=== PATIENT | male | born 1975 | race Caucasian/White ===

== ENCOUNTER 2020-04-17 11:36 | Inpatient (IN) | payer OTHER ==
--- NOTE | 2020-04-17 12:07 | BHS.RME ---
Substance Use & Tx History - Substance Use History Alcohol Substance amount: 6 cans 40 oz, + 1 pint Ashlie Frequency of use: Daily Substance route: Oral Date of Last Use: 04/16/20 Nicotine Substance amount: 1 pack Frequency of use: Daily Substance route: Smoking Date of Last Use: 04/17/20 Physical/Psych/Mental Status - Behavior General Behavior: Increased activity (restlessness, agitation) Eye Contact: Normal - Cooperativeness Cooperativeness: Cooperative - Thinking Thought Processes: Tight, Logical, Goal Directed Thought content: Future oriented - Physical Health Problems Is patient presently having any pain?: No Does patient presently have any injuries (include location): No Does patient currently have a fever: No Is patient : No CIWA Nausea/Vomitin Muscle Tremors: 4-Moderate,w/Arms Extend Anxiety: 3 Agitation: 3 Paroxysmal Sweats: 3 Orientation: 0-Oriented Tacttile Disturbances: 0-None Auditory Disturbances: 0-None Visual Disturbances: 0-None Headache: 2-Mild CIWA-Ar Total Score: 18
[2020-04-17 12:53] VITALS: BMI 31.6
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
[2020-04-17] MEDS ORDERED: chlordiazePOXIDE HCL 25 MG CAPSULE PO PRN (13:32)
[2020-04-17] MEDS ORDERED: MENTHOL/PHENOL 1 EACH UD MM PRN (13:32)
[2020-04-17] MEDS ORDERED: MAGNESIUM CITRATE 300 ML BOTTLE PO PRN (13:32)
[2020-04-17] MEDS ORDERED: ACETAMINOPHEN 325 MG TABLET (FP) PO PRN ×2 (13:32)
[2020-04-17] MEDS ORDERED: MAG HYDROX/AL HYDROX/SIMETH 30 ML UNIT-DOSE CUP PO PRN (13:32)
[2020-04-17] MEDS ORDERED: BISMUTH SUBSALICYLATE 262 MG/15 ML BTL PO PRN (13:32)
[2020-04-17] MEDS ORDERED: MAGNESIUM HYDROX 2400MG/30ML ORAL SUSPENSION 30 ML CUP PO PRN (13:32)
[2020-04-17] MEDS ORDERED: ONDANSETRON *ODT* 4 MG TABLET SL PRN (13:32)
[2020-04-17] MEDS ORDERED: METHOCARBAMOL 500 MG TABLET PO PRN (13:32)
[2020-04-17] MEDS ORDERED: NICOTINE POLACRILEX 2 MG GUM BUC PRN (13:32)
[2020-04-17] MEDS ORDERED: IBUPROFEN 400 MG TABLET (FP) PO PRN (13:32)
[2020-04-17] MEDS: hydrOXYzine PAMOATE 25 MG CAPSULE (FP) PO SCH ×3 (15:18→23:07)
--- NOTE | 2020-04-17 16:31 | EKG ---
Test Reason : Blood Pressure : / mmHG Vent. Rate : 080 BPM Atrial Rate : 080 BPM P-R Int : 146 ms QRS Dur : 086 ms QT Int : 366 ms P-R-T Axes : 028 051 -23 degrees QTc Int : 422 ms NORMAL SINUS RHYTHM T WAVE ABNORMALITY, CONSIDER LATERAL ISCHEMIA ABNORMAL ECG WHEN COMPARED WITH ECG OF 16-NOV-2017 09:30, NO SIGNIFICANT CHANGE WAS FOUND Confirmed by MALORIE ELLINGTON MD ([id number]) on 04/17/2020 4:31:21 PM Referred By: Confirmed By:MALORIE ELLINGTON MD
[2020-04-17 17:12] LABS: HEMATOCRIT 42.5 % (35.4-49); HEMOGLOBIN 14.4 GM/dL (11.7-16.9); MCH 29.8 pg (25.7-33.7); MCHC 33.8 g/dl (32.0-35.9); MEAN CELL VOLUME 88.1 fl (80-96); MEAN PLT VOLUME 9.8 fl (7.5-11.1); PLATELET COUNT 304 K/MM3 (134-434); RBC 4.82 M/mm3 (4.00-5.60); RDW 14.1 % (11.9-15.9); WHITE BLOOD COUNT 9.6 K/mm3 (4.0-10.0)
[2020-04-17 17:25] LABS: ALBUMIN 3.5 g/dl (3.4-5.0); BILIRUBIN,TOTAL 0.8 mg/dL (0.2-1); BLOOD UREA NITROGEN 17.1 mg/dL (7-18); CALCIUM 9.1 mg/dL (8.5-10.1); POTASSIUM 4.5 mmol/L (3.5-5.1); TOT PROT 7.2 g/dl (6.4-8.2)
[2020-04-17] MEDS: chlordiazePOXIDE HCL 25 MG CAPSULE PO SCH ×2 (17:52→23:07)
[2020-04-17] MEDS: MELATONIN 5 MG TABLETS PO SCH (23:07)
[2020-04-17] MEDS: THIAMINE HCL 100 MG TABLET (FP) PO SCH (23:07)
[2020-04-18] MEDS: hydrOXYzine PAMOATE 25 MG CAPSULE (FP) PO SCH ×5 (07:08→22:10)
[2020-04-18] MEDS: chlordiazePOXIDE HCL 25 MG CAPSULE PO SCH ×4 (07:08→22:10)
--- NOTE | 2020-04-18 09:40 | PN ---
[facility] CIWA - CIWA Score Nausea/Vomitin-Mild Nausea/No Vomiting Muscle Tremors: 3 Anxiety: 2 Agitation: 2 Paroxysmal Sweats: No Perspiration Orientation: 0-Oriented Tacttile Disturbances: 1-Very Mild Itch/Numbness Auditory Disturbances: 0-None Visual Disturbances: 0-None Headache: 1-Very Mild CIWA-Ar Total Score: 10 S Progress Note (SOAP) Subjective: alert,irritable,anxious,interrupted sleep,aching pain in the body,interrupted sleep Objective: 04/18/20 14:09 Vital Signs Temperature 98.0 F 04/18/20 12:47 Pulse Rate 75 04/18/20 12:47 Respiratory Rate 20 04/18/20 12:47 Blood Pressure 99/61 04/18/20 12:47 O2 Sat by Pulse Oximetry (%) 96 04/18/20 12:47 Laboratory Last Values WBC 9.6 K/mm3 (4.0-10.0) 04/17/20 13:45 RBC 4.82 M/mm3 (4.00-5.60) 04/17/20 13:45 Hgb 14.4 GM/dL (11.7-16.9) 04/17/20 13:45 Hct 42.5 % (35.4-49) 04/17/20 13:45 MCV 88.1 fl (80-96) 04/17/20 13:45 MCH 29.8 pg (25.7-33.7) 04/17/20 13:45 MCHC 33.8 g/dl (32.0-35.9) 04/17/20 13:45 RDW 14.1 % (11.9-15.9) 04/17/20 13:45 Plt Count 304 K/MM3 (134-434) D 04/17/20 13:45 MPV 9.8 fl (7.5-11.1) 04/17/20 13:45 Sodium 140 mmol/L (136-145) 04/17/20 13:45 Potassium 4.5 mmol/L (3.5-5.1) 04/17/20 13:45 Chloride 105 mmol/L (98-107) 04/17/20 13:45 Carbon Dioxide 28 mmol/L (21-32) 04/17/20 13:45 Anion Gap 6 MMOL/L (8-16) L 04/17/20 13:45 BUN 17.1 mg/dL (7-18) 04/17/20 13:45 Creatinine 1.0 mg/dL (0.55-1.3) 04/17/20 13:45 Est GFR (CKD-EPI)AfAm 104.88 04/17/20 13:45 Est GFR (CKD-EPI)NonAf 90.49 04/17/20 13:45 Random Glucose 107 mg/dL (74-106) H 04/17/20 13:45 Calcium 9.1 mg/dL (8.5-10.1) 04/17/20 13:45 Total Bilirubin 0.8 mg/dL (0.2-1) 04/17/20 13:45 AST 21 U/L (15-37) 04/17/20 13:45 ALT 57 U/L (13-61) 04/17/20 13:45 Alkaline Phosphatase 104 U/L (45-117) 04/17/20 13:45 Total Protein 7.2 g/dl (6.4-8.2) 04/17/20 13:45 Albumin 3.5 g/dl (3.4-5.0) 04/17/20 13:45 Syphilis Serology Non-reactive (NONREACTIVE) 04/17/20 13:45 COVID-19 (JAMIE) Not detected (Not Detected) 04/17/20 13:40 HIV Ag/Ab Combo Qual Negative (NEGATIVE) 04/17/20 13:45 Assessment: 04/18/20 14:11 withdrawal symptom Plan: continue detox libium regimen
[2020-04-18] MEDS: PRENATAL VITAMINS W/ FOLIC ACID TABLET (FP) PO SCH (10:25)
[2020-04-18] MEDS: NICOTINE 7 MG/24 HOURS TOPICAL PATCH TD SCH (10:26)
[2020-04-18] MEDS ORDERED: PNEUMOC 13-VAL CONJ-DIP CRM/PF 0.5 ML DISP.SYRIN IM ONE (12:00)
[2020-04-18] MEDS ORDERED: PNEUMOCOCCAL 23 VACCINE 0.5 ML VIAL IM ONE (12:00)
[2020-04-18] MEDS: THIAMINE HCL 100 MG TABLET (FP) PO SCH (22:10)
[2020-04-18] MEDS: MELATONIN 5 MG TABLETS PO SCH (22:10)
[2020-04-19] MEDS: hydrOXYzine PAMOATE 25 MG CAPSULE (FP) PO SCH ×5 (05:35→22:32)
[2020-04-19] MEDS: chlordiazePOXIDE HCL 25 MG CAPSULE PO SCH ×4 (05:35→22:32)
--- NOTE | 2020-04-19 09:21 | PN ---
S CIWA - CIWA Score Nausea/Vomitin-No Nausea/No Vomiting Muscle Tremors: 2 Anxiety: 2 Agitation: 0-Normal Activity Paroxysmal Sweats: 2 Orientation: 0-Oriented Tacttile Disturbances: 0-None Auditory Disturbances: 0-None Visual Disturbances: 0-None Headache: 2-Mild CIWA-Ar Total Score: 8 BHS Progress Note (SOAP) Subjective: c/o sweats, anxiety, shakes, and headache. Objective: 04/19/20 09:41 Vital Signs 04/19/20 04/19/20 06:18 09:08 Temperature 96.9 F L 98.2 F Pulse Rate 65 78 Respiratory 18 18 Rate Blood Pressure 100/60 113/62 O2 Sat by Pulse 96 Oximetry (%) Laboratory Last Values WBC 9.6 K/mm3 (4.0-10.0) 04/17/20 13:45 RBC 4.82 M/mm3 (4.00-5.60) 04/17/20 13:45 Hgb 14.4 GM/dL (11.7-16.9) 04/17/20 13:45 Hct 42.5 % (35.4-49) 04/17/20 13:45 MCV 88.1 fl (80-96) 04/17/20 13:45 MCH 29.8 pg (25.7-33.7) 04/17/20 13:45 MCHC 33.8 g/dl (32.0-35.9) 04/17/20 13:45 RDW 14.1 % (11.9-15.9) 04/17/20 13:45 Plt Count 304 K/MM3 (134-434) D 04/17/20 13:45 MPV 9.8 fl (7.5-11.1) 04/17/20 13:45 Sodium 140 mmol/L (136-145) 04/17/20 13:45 Potassium 4.5 mmol/L (3.5-5.1) 04/17/20 13:45 Chloride 105 mmol/L (98-107) 04/17/20 13:45 Carbon Dioxide 28 mmol/L (21-32) 04/17/20 13:45 Anion Gap 6 MMOL/L (8-16) L 04/17/20 13:45 BUN 17.1 mg/dL (7-18) 04/17/20 13:45 Creatinine 1.0 mg/dL (0.55-1.3) 04/17/20 13:45 Est GFR (CKD-EPI)AfAm 104.88 04/17/20 13:45 Est GFR (CKD-EPI)NonAf 90.49 04/17/20 13:45 Random Glucose 107 mg/dL (74-106) H 04/17/20 13:45 Calcium 9.1 mg/dL (8.5-10.1) 04/17/20 13:45 Total Bilirubin 0.8 mg/dL (0.2-1) 04/17/20 13:45 AST 21 U/L (15-37) 04/17/20 13:45 ALT 57 U/L (13-61) 04/17/20 13:45 Alkaline Phosphatase 104 U/L (45-117) 04/17/20 13:45 Total Protein 7.2 g/dl (6.4-8.2) 04/17/20 13:45 Albumin 3.5 g/dl (3.4-5.0) 04/17/20 13:45 Syphilis Serology Non-reactive (NONREACTIVE) 04/17/20 13:45 COVID-19 (JAMIE) Not detected (Not Detected) 04/17/20 13:40 HIV Ag/Ab Combo Qual Negative (NEGATIVE) 04/17/20 13:45 Labs noted. Assessment: 04/19/20 09:20 AOX3, in no acute respiratory distress. Full ROM, ambulating in the unit. Withdrawal symptoms. Plan: continue detox.
[2020-04-19] MEDS: PRENATAL VITAMINS W/ FOLIC ACID TABLET (FP) PO SCH (10:24)
[2020-04-19] MEDS: NICOTINE 7 MG/24 HOURS TOPICAL PATCH TD SCH (10:25)
[2020-04-19] MEDS: MELATONIN 5 MG TABLETS PO SCH (22:32)
[2020-04-19] MEDS: THIAMINE HCL 100 MG TABLET (FP) PO SCH (22:32)
[2020-04-20] MEDS ORDERED: chlordiazePOXIDE HCL 10 MG CAPSULE PO PRN
[2020-04-20] MEDS ORDERED: chlordiazePOXIDE HCL 10 MG CAPSULE PO SCH (05:00)
[2020-04-20] MEDS: hydrOXYzine PAMOATE 25 MG CAPSULE (FP) PO SCH (05:41)
[2020-04-20 06:09] VITALS: BP 100/60; PULSE 70; TEMP 96.9
--- NOTE | 2020-04-20 08:31 | DS ---
[facility] Detox Discharge Summary Admission Date: 04/17/20 Discharge Date: 04/20/20 - History Present History: Alcohol Dependence Additional Comments: 44 years old male was admitted on 04/17/20 for alcohol withdrawal sx management treating with librium detox regiment mr cardenas prefers to go to [facility] today and go to [facility] tomorrow where he will stay 6 - 8 months alert oriented x 3 ambulating steady gait speech clearly coherently General Appearance: Yes: Within Normal Limits, No Apparent Distress, Nourished, Appropriately Dressed Respiratory: Yes: Within Normal Limits, Lungs Clear, Normal Breath Sounds, No Respiratory Distress, No Accessory Muscle Use, health teaching on smoking cessation Cardiology: Yes: Within Normal Limits, Regular Rhythm, Regular Rate. No: JVD, Murmur Abdominal: Yes: Within Normal Limits, Normal Bowel Sounds, Non Tender, Flat, Soft. No: Tenderness Back: Yes: Within Normal Limits, Normal Inspection. No: CVA Tenderness Extremities: Yes: Within Normal Limits, Normal Inspection, Normal Range of Motion, Non-Tender. No: Swelling Neurological: Yes: Within Normal Limits, Fully Oriented, Alert, Normal Mood/Affect, Normal Response. No: Numbness Pertinent Past History: time for discharge 48 minutes treatment team met with mr cardenas to discuss the benefits of librium completion mr cardenas insists to go home today "[facility] helps me in the past" they know I am coming - Physical Exam Results Vital Signs: Vital Signs Temperature 96.9 F L 04/20/20 06:08 Pulse Rate 70 04/20/20 06:08 Respiratory Rate 18 04/20/20 06:08 Blood Pressure 100/60 04/20/20 06:08 O2 Sat by Pulse Oximetry (%) 98 04/20/20 06:08 Pertinent Admission Physical Exam Findings: alcohol withdrawal Vital Signs - 24 hr 04/19/20 04/19/20 04/19/20 12:58 16:33 21:13 Temperature 97.7 F 97.7 F 97.3 F L Pulse Rate 74 69 74 Respiratory 18 18 16 Rate Blood Pressure 104/68 127/68 109/77 O2 Sat by Pulse 95 95 Oximetry (%) 04/20/20 06:08 Temperature 96.9 F L Pulse Rate 70 Respiratory 18 Rate Blood Pressure 100/60 O2 Sat by Pulse 98 Oximetry (%) Laboratory Tests 09/04/17/20 04/17/20 13:40 13:45 13:45 WBC 9.6 RBC 4.82 Hgb 14.4 Hct 42.5 MCV 88.1 MCH 29.8 MCHC 33.8 RDW 14.1 Plt Count 304 D MPV 9.8 Sodium Potassium Chloride Carbon Dioxide Anion Gap BUN Creatinine Est GFR (CKD-EPI)AfAm Est GFR (CKD-EPI)NonAf Random Glucose Calcium Total Bilirubin AST ALT Alkaline Phosphatase Total Protein Albumin Syphilis Serology COVID-19 (JAMIE) Not detected HIV Ag/Ab Combo Qual Negative 04/17/20 04/17/20 13:45 13:45 WBC RBC Hgb Hct MCV MCH MCHC RDW Plt Count MPV Sodium 140 Potassium 4.5 Chloride 105 Carbon Dioxide 28 Anion Gap 6 L BUN 17.1 Creatinine 1.0 Est GFR (CKD-EPI)AfAm 104.88 Est GFR (CKD-EPI)NonAf 90.49 Random Glucose 107 H Calcium 9.1 Total Bilirubin 0.8 AST 21 ALT 57 Alkaline Phosphatase 104 Total Protein 7.2 Albumin 3.5 Syphilis Serology Non-reactive COVID-19 (JAMIE) HIV Ag/Ab Combo Qual lab noted - Treatment Hospital Course: Detox Protocol Followed, Detoxed Safely, Responded well, Discharged Condition Good, Rehab Referral Accepted Patient has Accepted a Rehab Referral to: [facility] - Medication Discharge Medications: Ambulatory Orders NK [No Known Home Medication] 04/17/20 - Diagnosis (1) Substance induced mood disorder Current Visit: Yes Status: Suspected (2) Alcohol dependence with uncomplicated withdrawal Current Visit: Yes Status: Acute (3) Nicotine dependence Current Visit: Yes Status: Acute Qualifiers: Nicotine product type: cigarettes Substance use status: in withdrawal Qualified Code(s): F17.213 - Nicotine dependence, cigarettes, with withdrawal - AMA Did Patient Leave Against Medical Advice: No CIWA Score - CIWA Score Nausea/Vomitin-No Nausea/No Vomiting Muscle Tremors: 2 Anxiety: 2 Agitation: 0-Normal Activity Paroxysmal Sweats: No Perspiration Orientation: 0-Oriented Tacttile Disturbances: 0-None Auditory Disturbances: 0-None Visual Disturbances: 0-None Headache: 0-None Present CIWA-Ar Total Score: 4
[2020-04-21] MEDS ORDERED: chlordiazePOXIDE HCL 10 MG CAPSULE PO SCH (05:00)
--- NOTE | 2020-04-21 08:24 | PN ---
Teaching Attending Note Name of Resident: Hasmukh Gray ATTENDING PHYSICIAN STATEMENT I saw and evaluated the patient. I reviewed the resident's note and discussed the case with the resident. I agree with the resident's findings and plan as documented. SUBJECTIVE: OBJECTIVE: ASSESSMENT AND PLAN: Agree with resident's findings and plan for detox.
[2020-04-22] MEDS ORDERED: chlordiazePOXIDE HCL 10 MG CAPSULE PO ONE (05:00)
== END 2020-04-20 09:28 | disposition home or self-care (01) | DRG 775 ==
LOC: YASAS 11:36 → Y3N 13:27
PROVIDERS: ADMIT Allergy & Immunology; ATTEND Allergy & Immunology
PROC: HZ2ZZZZ Detoxification Services for Substance Abuse Treatment (ICD-10-PCS; principal; 2020-04-17)
DX: F10.230 Alcohol dependence with withdrawal, uncomplicated (principal); F17.210 Nicotine dependence, cigarettes, uncomplicated; F19.24 Other psychoactive substance dependence with psychoactive substance-induced mood disorder; Z59.0 Homelessness
CPT/HCPCS: 36415; 80053; 85027; 86780; 87389; 90732; 93005; 93010; G0009; U0003

== ENCOUNTER 2020-05-02 21:07 | Inpatient (IN) | payer OTHER ==
--- OUTSIDE RECORDS SUMMARY | 2020-05-02 21:16 | XMS ---
:1975 [facility] Providers Name Role Phone DEBI ANTONAMADORCHECO Unavailable Jimi Chisholm MD Unavailable Unavailable Akash See MD Unavailable Unavailable ED STAFF PHYSICIAN Unavailable Unavailable SD Mayers Unavailable Unavailable Keanu Unavailable Unavailable Re-disclosure Warning The records that you are about to access may contain information from federally- assisted alcohol or drug abuse programs. If such information is present, then the following federally mandated warning applies: This information has been disclosed to you from records protected by federal confidentiality rules (42 CFR part 2). The federal rules prohibit you from making any further disclosure of this information unless further disclosure is expressly permitted by the written consent of the person to whom it pertains or as otherwise permitted by 42 CFR part 2. A general authorization for the release of medical or other information is NOT sufficient for this purpose. The Federal rules restrict any use of the information to criminally investigate or prosecute any alcohol or drug abuse patient.The records that you are about to access may contain highly sensitive health information, the redisclosure of which is protected by Article 27-F of the [facility] Public Health law. If you continue you may haveaccess to information: Regarding HIV / AIDS; Provided by facilities licensed or operated by the [facility] Office of Mental Health; or Provided by the [facility] Office for People With Developmental Disabilities. If such information is present, then the following [facility] mandated warning applies: This information has been disclosed to you from confidential records which are protected by state law. State law prohibits you from making any further disclosure of this information without the specific written consent of the person to whom it pertains, or as otherwise permitted by law. Any unauthorized further disclosure in violation of state law may result in a fine or shelter sentence or both. A general authorization for the release of medical or other information is NOT sufficient authorization for further disclosure. Encounters Encounter Providers Location Date Indications Data Source(s ) Inpatient Attender: Jimi 5T-2N 10/19/2019 [facility] Neda See 06:09:00 [facility] MDAttender: EDT - Jose Alejandro 10/26/2019 EllisonAdmitter: 05:00:00 PM Jimi See EDT SCHIZOAFFECTIVE DISORDER Patient discharged. Inpatient Attender: TAMMY WONG H-HAL2 09/14/2019 12:39: 00 [facility] TAMMY RAttender: STAFF AM EST - [address] [place] [address] ED STAFF PHYSICIANAdmitter: 01:27:00 PM EDT TAMMY MUNOZ RReferrer: TAMMY MUNOZ R Patient discharged. Inpatient Attender: CHECO CARRERA H-HAL6 03/20/2018 07:42 :00 [facility] EDSEANERAdmitter: AM EDT - 03/21/2018 [facility] CHECO CARRERA 01:35:00 PM EDT TATIOPHERReferrer: CHECO KESSLER Medications Medication Brand Start Product Dose Route Administrative Pharmacy [facility] Indications Reaction Description Data Name Date Form Instructions Instructions Source(s) 24 HR nicoti [id number] active Nicoderm C- Q [facility] Nic[facility] ne 2019 [facility] 0.583 MG/HR mg/24 03:43: H} Syste m Transdermal hr 28 PM Patch transd EDT nicotine 14 ermal mg/24 hr film, transdermal extend film, ed extended releas release e aripiprazol ARIPip [id number] active Aripi prazole [facility] e 5 MG Oral razole 2019 {tab( Healt h Tablet 5 mg 03:43: s)} System ARIPiprazol oral 03 PM e 5 mg oral tablet EDT tablet Sertraline sertra [id number] active Sertra line [facility] 50 MG Oral line 2019 {tab( Health Tablet 50 mg 03:42: s)} System sertraline oral 53 PM 50 mg oral tablet EDT tablet Lashmeet lithiu R47221 complet Lashmeet [facility] Carbonate m 300 2017 {cap( ed Carbonate Hea lth 300 MG Oral mg 02:04: s)} System Capsule oral 14 PM lithium 300 capsul EDT mg oral e capsule aripiprazole ARIPiprazole 12/02/2017 1 [id number] active ARIPiprazole 5 mg oral tablet; 1 tab(s) orally once a day Ordered: 02-Dec-2017 Start: 02-Dec-2017 E nd: 31-Dec-2017 [facility] 5 MG Oral 5 mg oral 02:03:57 PM {tab(s)} Quantity: 30 [facility] Tablet tablet EDT Refills: 0 System ARIPiprazole 5 mg oral tablet Sertraline 100 MG sertraline 100 mg 1 completed [facility] Oral Tablet Tablet, Ordered By: [facility] sertraline 100 mg Abbey-Nafisa Wong, Tablet, Ordered By: MDDirections: 1 Abbey-Nafisa Wong, tablet oral daily on MDDirections: 1 waking tablet oral daily on waking Melatonin 3 MG Oral melatonin 3 mg 2 completed [facility] Tablet melatonin 3 mg Tablet, Ordered By: [facility] Tablet, Ordered By: Abbey-Nafisa Wong, Abbey-Nafisa Wong, MDDirections: 2 MDDirections: 2 tablet oral daily at tablet oral daily at bedtime bedtime aripiprazole 15 MG aripiprazole 15 mg 1 complet ed [facility] Oral Tablet Tablet, Ordered By: [facility] aripiprazole 15 mg Abbey-Nafisa Wong, Tablet, Ordered By: MDDirections: 1 Abbey-Nafisa Wong, tablet oral daily at MDDirections: 1 bedtime tablet oral daily at bedtime Insurance Providers Payer name Policy type Policy ID Covered Covered constitution party's Policy P escobar / Coverage constitution party ID relationship to [facility] ormation type rivera [facility] [id number] HEALTH NON CAP Medicaid E Medicaid [id number] 1 [id number] W [facility] Medicaid [id number] Medicaid Self Pay Self Pay 1 Medicaid Medicaid [id number] W [id number] Problems, Conditions, and Diagnoses Code Display Name Description Problem Type Effective Data Dates Source(s) F25.9 Schizoaffective Schizoaffective 28889-0 10/19/2019 [facility] disorder disorder 12:00:00 AM Health System EDT F25.9 Schizoaffective Schizoaffective Diagnosis 10/19/2019 [facility], [facility] SCHIZOAFFECTIVE SCHIZOAFFECTIVE Diagnosis 10/19/2019 [facility] DISORDER DISORDER 07:54:00 PM [facility] Z91.5 Personal history of History of Diagnosis 10/19/2019 [facility] self-harm self-harm 07:54:00 PM [facility] F17.210 Nicotine Cigarette nicotine Diagnosis 10/19/2019 [facility] dependence, dependence without 07:54:00 PM Eric on cigarettes, complication EDT Hospital uncomplicated D72.829 Elevated white Leukocytosis Diagnosis 10/19/2019 S - Mo unt blood cell count, 07:54:[facility] Y90.0 Blood alcohol level BLOOD ALCOHOL LEVEL Diagnosis 020 [facility] of less than 20 OF LESS THAN 20 01:27:00 PM Med ical mg/100 ml MG/100 ML EDT Center F10.229 Alcohol dependence ALCOHOL DEPENDENCE Diagnosis 0 [facility] with intoxication, WITH INTOXICATION, 01:27:00 PM Medical unspecified UNSPECIFIED EDT Center F14.20 Cocaine dependence, COCAINE DEPENDENCE, Diagnosis 020 [facility] uncomplicated UNCOMPLICATED 01:27:00 PM Medical EDT Center Z59.0 Homelessness HOMELESSNESS Diagnosis 10/12/2019 [facility] 01:27:00 PM Medical EDT Center Z56.0 Unemployment, UNEMPLOYMENT, Diagnosis 10/12/2019 [facility] unspecified UNSPECIFIED 01:27:00 PM Medical EDT Center F32.9 Major depressive MAJOR DEPRESSIVE Diagnosis 09/14/2019 [facility] disorder, single DISORDER, SINGLE 12:39:00 AM M edical episode, EPISODE, EST Center unspecified UNSPECIFIED Surgeries/Procedures Procedure Description Date Indications Data Source(s) XR Chest Single AP view XR 11/26/2017 [facility] Chest Single AP view 12:11:00 AM System EDT - 11/26/2017 12:11:00 AM EDT Computed tomography of 11/26/2017 [facility] abdomen (procedure) 12:11:00 AM System EDT - 11/26/2017 12:11:00 AM EDT Electrocardiographic 11/25/2017 [facility] procedure (procedure) 10:50:03 PM System EDT - 11/25/2017 10:54:00 PM EDT Results ID Date Data Source [id number] 04/22/2020 11:57:00 AM EDT [facility] Name Value Range Interpretation Code Description Data Nae rce(s) Supporting Document(s ) SARS-CoV-2 [facility] RNA Resp Ql JAMIE+probe This lab was ordered by [facility] a nd reported by [facility]. ID Date Data Source [id number] 04/17/2020 01:40:00 PM EDT [facility] Name Value Range Interpretation Description Data Sup porting Code Source(s) Document(s ) SARS [facility] coronavirus 2 RNA This lab was ordered by [facility] and reported by [facility]. ID Date Data Source [id number] 04/14/2020 07:57:00 AM EDT [facility] System Name Value Range Interpretation Code Description Data Nae rce(s) Supporting Document(s ) SARS-CoV-2 [facility] RNA Resp Health System Ql JAMIE+probe This lab was ordered by [facility] a nd reported by [facility]. ID Date Data Source [id number] 04/06/2020 11:11:00 PM EDT [facility] Name Value Range Interpretation Code Description Data Nae rce(s) Supporting Document(s ) SARS-CoV-2 [facility] RNA Resp Ql JAMIE+probe This lab was ordered by [facility] a nd reported by [facility]. ID Date Data Source [id number] 10/26/2019 06:36:00 PM EDT [facility] System Name Value Range Interpretation Description Data Sup porting Code Source(s) Document(s ) Leukocytes 19.4 Above high WBC Count [facility] [#/volume] in {10^3_uL normal Health Unspecified } System specimen by Automated count Erythrocytes 5.50 Normal (applies RBC Count [facility] [#/volume] in {10^6_uL to non-numeric Health Blood by } results) System Automated count Hemoglobin 15.6 Normal (applies Hemoglobin [facility] [Mass/volume] in {gm/dL} to non-numeric Health Blood results) System Erythrocyte mean 84.2 fl Normal (applies MCV [facility] corpuscular to non-numeric Health volume [Entitic results) System volume] by Automated count Hematocrit 46.3 % Normal (applies Hematocrit [facility] [Volume to non-numeric Health Fraction] of results) System Blood Erythrocyte mean 28.4 pg Normal (applies MCH [facility] corpuscular to non-numeric Health hemoglobin results) System [Entitic mass] by Automated count Erythrocyte 12.7 % Normal (applies RDW-CV [facility] distribution to non-numeric Health width [Entitic results) System volume] by Automated count Platelets 334 Normal (applies Platelet Count [facility] [#/volume] in {10^3_uL to non-numeric Health Plasma by } results) System Automated count Platelet mean 10.6 fl Above high MPV [facility] volume [Entitic normal Health volume] in Blood System by Automated count Erythrocyte mean 33.7 Normal (applies MCHC [facility] corpuscular {gm/dL} to non-numeric Health hemoglobin results) System concentration [Mass/volume] by Automated count Eosinophils 0.10 Normal (applies Eosinophil # [facility] [#/volume] in {10^3_uL to non-numeric Health Blood } results) System Neutrophils 16.3 Above high Neutrophil # [facility] [#/volume] in {10^3_uL normal Health Body fluid } System Lymphocyte 1.4 Normal (applies Lymphocyte # [facility] percent {10^3_uL to non-numeric Health differential } results) System count (procedure) Monocytes 1.4 Above high Monocyte # [facility] [#/volume] in {10^3_uL normal Health Blood by Manual } System count Basophils 0.09 Normal (applies Basophil # [facility] [#/volume] in {10^3_uL to non-numeric Health Blood by } results) System Automated count Basophils/100 0.5 % Normal (applies Basophil % [facility] leukocytes in to non-numeric Health Unspecified results) System specimen by Manual count Lymphocytes 7.2 % Below low normal Lymphocyte % [facility] [#/volume] in Health Blood by System Automated count Monocytes/100 7.0 % Normal (applies Monocyte % [facility] leukocytes in to non-numeric Health Blood results) System Neutrophils/100 84.3 % Above high Neutrophil % [facility] leukocytes in normal Health Blood by System Automated count Eosinophils/100 0.5 % Normal (applies Eosinophil % Marco Antonio najma leukocytes in to non-numeric Health Unspecified results) System specimen Nucleated 0.0 Normal (applies NRBC % [facility] erythrocytes {/100_WB to non-numeric Health [#/volume] in C} results) System Body fluid ImmatureGranuloc 0.5 % Normal (applies Immature [facility] ytes% to non-numeric Granulocytes % Health results) System NRBC# 0.00 Below low normal NRBC # [facility] {10^3_uL Health } System ImmatureGranuloc 0.09 Normal (applies Immature [facility] ytes# {10^3_uL to non-numeric Granulocytes # Health } results) System ID Date Data Source [id number] 10/26/2019 06:36:00 PM EDT [facility] Name Value Range Interpretation Description Data Sup porting Code Source(s) Document(s ) Sodium 138 Normal (applies Sodium, Serum [facility] [Moles/volume] in mmol/L to non-numeric Health Serum or Plasma results) System Potassium 4.2 Normal (applies Potassium, [facility] [Mass/volume] in mmol/L to non-numeric Serum Health Serum or Plasma results) System Glucose 103 Normal (applies Glucose, [facility] [Mass/volume] in mg/dL to non-numeric Serum Health Serum or Plasma results) System Carbon dioxide, 26.0 Normal (applies CO2, Serum [facility] total mmol/L to non-numeric Health [Moles/volume] in results) System Serum or Plasma Chloride 99 Normal (applies Chloride, [facility] [Moles/volume] in mmol/L to non-numeric Serum Health Serum or Plasma results) System TotalProtein 7.8 Normal (applies Total Protein [facility] mg/dl to non-numeric Health results) System Bilirubin.total 0.8 Normal (applies Bilirubin, [facility] [Mass/volume] in mg/dl to non-numeric Serum Total Health Serum or Plasma results) System Urea nitrogen 15 Normal (applies Blood Urea [facility] [Mass/volume] in mg/dl to non-numeric Nitrogen, Health Serum or Plasma results) Serum System Creatinine 1.00 Normal (applies Creatinine, [facility] [Mass/volume] in mg/dl to non-numeric Serum Health Serum or Plasma results) System Alkaline 105 Normal (applies Alkaline [facility] phosphatase {IU/L} to non-numeric Phosphatase, Health isoenzymes results) Serum System [Enzymatic activity/volume] in Serum or Plasma by Heat stability Aspartate 26 Normal (applies Aspartate [facility] aminotransferase {IU/L} to non-numeric Transaminase, Heal th [Enzymatic results) Serum System activity/volume] in Serum or Plasma by With P-5'-P DirectBilirubin 0.4 Normal (applies Direct [facility] mg/dl to non-numeric Bilirubin Health results) System I.Phosphorus 4.2 Normal (applies I. Phosphorus [facility] mg/dl to non-numeric Health results) System Albumin 4.7 Normal (applies Albumin, [facility] [Mass/volume] in {gm/dl} to non-numeric Serum Health Serum or Plasma results) System Urate 6.1 Normal (applies Uric Acid, [facility] [Mass/volume] in mg/dl to non-numeric Serum Health Serum or Plasma results) System Calcium 9.4 Normal (applies Calcium, [facility] [Mass/volume] in mg/dl to non-numeric Total Serum Health Serum or Plasma results) System Alanine 26 Normal (applies Alanine [facility] aminotransferase {IU/L} to non-numeric Aminotransfer Heal th [Enzymatic results) ase, Serum System activity/volume] in Serum or Plasma A/GRatio 1.52 Normal (applies A/G Ratio [facility] to non-numeric Health results) System Anion gap in Serum 13.00 Above high Anion Gap [facility] or Plasma mmol/L normal Health System Glomerular 81.00 Normal (applies GFR [facility] filtration to non-numeric Health rate/1.73 sq results) System M.predicted [Volume Rate/Area] in Serum or Plasma by Creatinine-based formula (CKD-EPI) eGFR will provide clinicians with a more accurate indicator of renal function then the serum creatinine. The eGFR is automa tically calculated from an empiric formula (endorsed by the National [employer] ion) which incorporates age, sex, and race.Clinicians may notice surprisingly low GFR's with serum creatinine valueswithin normal range- particularly in elderly wo men (with low muscle mass).In the hospital setting, the eGFR should add an element of safety in drug dosing, in assessing the risk of IV contrast administration, and in assessing vascular risk.The NKF staging system is as follows:Normal: eGFR >90 with no kidney markersStage 1: eGFR >90 with kidney markers*Stage 2: eGFR 60- 89Stage 3: eGFR 30-59Stage 4: eGFR 15-29Stage 5: eGFR <15 (usually requir ing dialysis)*Markers include: Proteinuria, Hematuria, abnormal imaging-studies, or other blood or urine test abnormalities ID Date Data Source [id number] 10/26/2019 06:36:00 PM EDT [facility] Name Value Range Interpretation Description Data Sup porting Code Source(s) Document(s ) AlcoholE NON DETECTED Normal (applies to Alcohol Ethyl, [facility] thyl,Blo None non-numeric Blood Health System od Detected results) ID Date Data Source [id number] 10/26/2019 06:36:00 PM EDT [facility] Name Value Range Interpretation Description Data Source(s ) Supporting Code Document(s ) Lipase 45 U/L Normal (applies to Lipase, Serum [facility] [Enzymatic non-numeric Health System activity/vo results) lume] in Serum or Plasma ID Date Data Source [id number] 10/26/2019 06:36:00 PM EDT [facility] Name Value Range Interpretation Description Data Source(s ) Supporting Code Document(s ) PCO2* 46.5 Normal (applies to PCO2* [facility] {mm_Hg} non-numeric Health System results) BaseExce 4.50 Above high normal Base Excess* [facility] ss* {mEq/L} Health System PH* 7.406 Normal (applies to PH* [facility] {pH_units non-numeric Health System } results) Chloride 100 Normal (applies to Chloride, VB [facility] ,VB mmol/L non-numeric Health System results) Glucose, 102 mg/dL Normal (applies to Glucose, VB [facility] VB non-numeric Health System results) HCO3* 29.2 Above high normal HCO3* [facility] mmol/L Health System Lactate. 1.2 Normal (applies to Lactate. [facility] mmol/L non-numeric Health System results) Potassiu 4.1 Normal (applies to Potassium, VB [facility] m,VB mmol/L non-numeric Health System results) Sodium,V 138 Normal (applies to Sodium, VB [facility] B mmol/L non-numeric Health System results) IonizedC 1.16 Normal (applies to Ionized [facility] alcium,V mmol/L non-numeric Calcium, Health System B results) [id number] 39.70 % Normal (applies to O2 Saturation* [facility] tion* non-numeric Health System results) ID Date Data Source [id number] 10/26/2019 06:36:00 PM EDT [facility] Name Value Range Interpretation Description Data Source(s ) Supporting Code Document(s ) Troponin 0.00 Normal (applies to Troponin I [facility] IQuantit ng/mL non-numeric Quantitative - Health System ative-MV results) MV Only Only ID Date Data Source [id number] 10/26/2019 06:36:00 PM EDT [facility] Name Value Range Interpretation Description Data Sup porting Code Source(s) Document(s ) Amphetamine Negative Normal (applies Amphetamine [facility] [Mass/volume] to non-numeric Level, Urine Health in Urine results) System Cut-off = 1000 ng/mL Barbiturates Negative Normal (applies to Barbiturate [facility] [Mass/volume] in non-numeric Screen, Urine Health System Urine by Screen results) method Cut-off = 200 ng/mL Cocaine Negative Normal (applies Cocaine [facility] metabolites.other to non-numeric Metabolite Health System [Mass/volume] in Urine results) Screen, Urine Cut-off = 300 ng/mL Benzodiazepines Positive Abnormal Benzodiazepines, [facility] [Mass/volume] in (applies to Urine Health Syst em Urine non-numeric results) Cut-off = 200 ng/mL [id number],Urine Negative Normal (applies to Opiate 300, [facility] non-numeric results) Urine System Cut-off = 300 ng/mL Methadone Negative Normal (applies to Methadone Level, [facility] [Mass/volume] in non-numeric Urine System Urine results) Cut-off = 300 ng/mL Cannabinoid(THC) Negative Normal (applies to Cannabinoid (THC) [facility] non-numeric System results) Cutt-off = 50These results are for medic al treatment only. The positive findings are unconfirmed. Request confirmatory/quanti tative test if needed. Phencyclidine Negative Normal (applies Phencyclidine, Urine [facility] [Mass/volume] in to non-numeric Health S ystem Urine results) Cut-off = 25 ng/mL ID Date Data Source [id number] 10/26/2019 06:36:00 PM EDT [facility] Name Value Range Interpretation Description Data Sup porting Code Source(s) Document(s ) Lashmeet < 0.101 Below low normal L[place]meet Level, [facility] [Mass/volum Serum Health System e] in Serum or Plasma Performed At [facility], [address] [place] [address] ID Date Data Source [id number] 10/26/2019 06:36:00 PM EDT [facility] Name Value Range Interpretation Description Data Sup porting Code Source(s) Document(s ) Leukocytes 8.6 Normal (applies WBC Count [facility] [#/volume] in {10^3_uL to non-numeric Health Unspecified } results) System specimen by Automated count Hemoglobin 15.1 Normal (applies Hemoglobin [facility] [Mass/volume] in {gm/dL} to non-numeric Health Blood results) System Erythrocytes 5.27 Normal (applies RBC Count [facility] [#/volume] in {10^6_uL to non-numeric Health Blood by } results) System Automated count Erythrocyte mean 85.4 fl Normal (applies MCV [facility] corpuscular to non-numeric Health volume [Entitic results) System volume] by Automated count Hematocrit 45.0 % Normal (applies Hematocrit [facility] [Volume to non-numeric Health Fraction] of results) System Blood Erythrocyte mean 28.7 pg Normal (applies MCH [facility] corpuscular to non-numeric Health hemoglobin results) System [Entitic mass] by Automated count Erythrocyte 12.5 % Normal (applies RDW-CV [facility] distribution to non-numeric Health width [Entitic results) System volume] by Automated count Erythrocyte mean 33.6 Normal (applies MCHC [facility] corpuscular {gm/dL} to non-numeric Health hemoglobin results) System concentration [Mass/volume] by Automated count Platelet mean 10.7 fl Above high normal MPV [facility] volume [Entitic Health volume] in Blood System by Automated count Platelets 286 Normal (applies Platelet [facility] [#/volume] in {10^3_uL to non-numeric Count Health Plasma by } results) System Automated count ID Date Data Source [id number] 10/26/2019 06:36:00 PM EDT [facility] alth System Name Value Range Interpretation Description Data Sup porting Code Source(s) Document(s ) Human NONREACTIVE Normal ([facility]lies [facility] Normal Range: to non-numeric Routine Health cy virus Non results) (antigen and System antibody titer ReactiveNegativ antibody measurement e for HIV-1 testing) (procedure) antigen and HIV-1/HIV-2 antibodies. No laboratory evidence of HIV infection.Test was performed at [address] ID Date Data Source [id number] 10/26/2019 06:36:00 PM EDT [facility] alth System Name Value Range Interpretation Description Data Sup porting Code Source(s) Document(s ) Sodium 138 Normal (applies Sodium, Serum [facility] [Moles/volume mmol/L to non-numeric Health Syst em ] in Serum or results) Plasma Potassium 4.5 Normal (applies Potassium, [facility] [Mass/volume] mmol/L to non-numeric Serum Health Syst em in Serum or results) Plasma Carbon 24.0 Normal (applies CO2, Serum [facility] dioxide, mmol/L to non-numeric Health System total results) [Moles/volume ] in Serum or Plasma Glucose 86 mg/dL Normal (applies Glucose, Serum [facility] [Mass/volume] to non-numeric Health Syst em in Serum or results) Plasma Chloride 104 Normal (applies Chloride, [facility] [Moles/volume mmol/L to non-numeric Serum Health Syst em ] in Serum or results) Plasma Creatinine 0.90 Normal (applies Creatinine, [facility] [Mass/volume] mg/dl to non-numeric Serum Health Syst em in Serum or results) Plasma Calcium 9.3 Normal (applies Calcium, Total [place] [facility] [Mass/volume] mg/dl to non-numeric Serum Health Syst em in Serum or results) Plasma Urea nitrogen 13 mg/dl Normal (applies Blood Urea [place] [facility] [Mass/volume] to non-numeric Nitrogen, Health Syst em in Serum or results) Serum Plasma Anion gap in 10.00 Normal (applies Anion Gap [facility] Serum or mmol/L to non-numeric Health System Plasma results) ID Date Data Source [id number] 10/26/2019 06:36:00 PM EDT [facility] Name Value Range Interpretation Description Data Sup porting Code Source(s) Document(s ) Triglyceride 146 Normal (applies Triglycerides, [facility] [Mass/volume] mg/dl to non-numeric Serum Health in Serum or results) System Plasma Optimal = < 100 mg/dLBoderline High = 15 0 - 199 mg/dLHigh = 200 - 499 mg/dLVery High = > 500 mg/dL Cholesterol 165 mg/dl Normal (applies Cholesterol, Serum [facility] [Mass/volume] in to non-numeric Health S ystem Serum or Plasma results) <200 mg/dL = [id number] - 239 md/dL = Borderline>240 mg/dL = High Risk Cholesterol in HDL 38.0 mg/dL Normal (applies HDL Cholestero l, [facility] [Mass/volume] in to non-numeric Serum Health S ystem Serum or Plasma results) Cholesterol in LDL 97.8 mg/dL Normal (applies Low Density [facility] [Mass/volume] in to non-numeric Lipoprotein, Healt h System Serum or Plasma results) Calculated OPTIMAL: LESS THAN 100 mg/dLNEAR OPTIMAL : 100 - 129 mg/dLBODERLINE HIGH: 130 - 150 mg/dL Cholesterol in VLDL 29.2 Normal (applies to VLDL, Serum [facility] [Mass/volume] in Serum non-numeric results) System or Plasma CHDRisk 4.34 Normal (applies to [facility] non-[facility] results) System ID Date Data Source [id number] 10/14/2019 01:09:00 PM EDT [facility] Name Value Range Interpretation Code Description Data Nae rce(s) Supporting Document(s ) SARS-CoV-2 [facility] RNA XXX Ql Health [facility] JAMIE+probe This lab was ordered by [facility] a nd reported by [facility]. ID Date Data Source HematologyRou.[id number] 09/16/2019 06:36:00 AM ROSELINE Ricardo [facility] 0500 Name Value Range Interpretation Description Data Sup porting Code Source(s) Document(s ) Hemoglobin 13.5-17. <content [facility] [Mass/volume] in 5 styleCode="Bold Tu Blood ">Hemoglobin Medical </content>14.3 Center G/DL<content styleCode="Ital ics"> (13.5-17.5 G/DL)</content> Erythrocytes 4.4-5.9 <content [facility] [#/volume] in styleCode="Bold Tu Blood by ">Red Blood Medical Automated count Cell Count Center </content>4.87 MCUMM<content styleCode="Ital ics"> (4.4-5.9 MCUMM)</content > Leukocytes 4.4-11.0 <content Saint [#/volume] in styleCode="Bold [facility] Blood by ">White Blood Medical Automated count Cell Count Center </content>7.52 KCUMM<content styleCode="Ital ics"> (4.4-11.0 KCUMM)</content > Hematocrit 41.0-53. <content Saint [Volume 0 styleCode="Bold [facility] Fraction] of ">Hematocrit Medical Blood by </content>43.1 Center Automated count %<content styleCode="Ital ics"> (41.0-53.0 %)</content> Platelets 130-400 <content Saint [#/volume] in styleCode="Bold Tu Blood by ">Platelet Medical Automated count Count Center </content>249 KCUMM<content styleCode="Ital ics"> (130-400 KCUMM)</content > Erythrocyte mean 26.0-34. <content Saint corpuscular 0 styleCode="Bold Tu hemoglobin ">Mean Medical [Entitic mass] Corposcular Center by Automated Hemoglobin count </content>29.4 PG<content styleCode="Ital ics"> (26.0-34.0 PG)</content> Erythrocyte mean 32.0-37. <content [facility] corpuscular 0 styleCode="Bold Tu hemoglobin ">Mean Corpus. Medical concentration Hgb Center [Mass/volume] by Concentration Automated count (MCHC) </content>33.2 G/DL<content styleCode="Ital ics"> (32.0-37.0 G/DL)</content> Erythrocyte mean 80.0-100 <content Saint corpuscular .0 styleCode="Bold Tu volume [Entitic ">Mean Medical volume] by Corpuscular Center Automated count Volume </content>88.5 FL<content styleCode="Ital ics"> (80.0-100.0 FL)</content> Erythrocyte 11.5-14. <content Saint distribution 5 styleCode="Bold Tu width [Ratio] by ">Red Cell Medical Automated count Distribution Center Width </content>12.3 %<content styleCode="Ital ics"> (11.5-14.5 %)</content> Platelet mean 8.0-11.0 Above high <content Saint volume [Entitic normal styleCode="Bold Tu volume] in Blood ">Mean Platelet Medical by Automated Volume Center count </content>11.6 FL H<content styleCode="Ital ics"> (8.0-11.0 FL)</content> UNK 0.0 <content Saint styleCode="Bold Tu ">Nucleated Red Medical Blood Cell Center Count </content>0.00 KCUMM<content styleCode="Ital ics"> (0.0 KCUMM)</content > UNK 0 <content Saint styleCode="Bold Tu ">Nucleated Red Medical Blood Cell Center </content>0.0 /100<content styleCode="Ital ics"> (0 /100)</content> ID Date Data Source [id number] 09/15/2019 12:35:00 AM EST [facility] Center Name Value Range Interpretation Description Data Sup porting Code Source(s) Document(s ) Triglyceride < 150 <content Saint [Mass/volume] in styleCode="Mohan Tu Serum or Plasma d">Triglycerid [facility] Center </content>122 MG/DL<content styleCode="Jacey lics"> (< 150 MG/DL)</conten t> UNK < 100 <content Saint styleCode="Mohan Tu d">LDL-Cholest Medical partha [place] </content>80 MG/DL<content styleCode="Jacey lics"> (< 100 MG/DL)</conten t> Cholesterol -<200 <content Saint [Mass/volume] in styleCode="Mohan Mae Serum or Plasma d">Cholesterol Medical </content>146 Center MG/DL<content styleCode="Jacey lics"> (-<200 MG/DL)</conten t> UNK > 60 Below low normal <content Saint styleCode="Mohan Tu d">HDL- Medical Cholesterol [place] </content>42 MG/DL L<content styleCode="Jacey lics"> (> 60 MG/DL)</conten t> ID Date Data Source [id number] 09/15/2019 12:35:00 AM [facility] -0500 Name Value Range Interpretation Code Description Data Nae rce(s) Supporting Document(s ) UNK 4.2-5.8 <content [facility] styleCode="Bold" Medical Cente r >Hemoglobin A1C </content>5.7 %<content styleCode="Itali cs"> (4.2-5.8 %)</content> ID Date Data Source [id number] 09/14/2019 01:30:00 AM [facility] 0 Name Value Range Interpretation Description Data Sup porting Code Source(s) Document(s ) Color of Urine YELLOW <content Saint styleCode="Mohan Tu d">Color, Medical Urine Center </content>YELL OW <content styleCode="Jacey lics"> (YELLOW )</content> UNK CLEAR <content Saint styleCode="Mohan Tu d">Urine Medical Clarity Center </content>BOO R <content styleCode="Jacey lics"> (CLEAR )</content> Ketones NEGATIVE <content Saint [Mass/volume] styleCode="Mohan Mae in Urine by d">Urine Medical Test strip Ketone Center </content>NEGA TIVE MG/DL<content styleCode="Jacey lics"> (NEGATIVE MG/DL)</conten t> UNK NEGATIVE <content Saint styleCode="Mohan Tu d">Urine Medical Bilirubin Center </content>NEGA TIVE <content styleCode="Jacey lics"> (NEGATIVE )</content> Specific 1.015-1.02 Below low normal <content Saint gravity of 5 styleCode="Mohan Noes Urine by Test d">Urine Medical strip Specific Center [place] </content>1.01 0 L<content styleCode="Jacey lics"> (1.015-1.025 )</content> Glucose NEGATIVE <content Saint [Mass/volume] styleCode="Mohan Tu in Urine by d">Urine Medical Test strip Glucose Center </content>NEGA TIVE MG/DL<content styleCode="Jacey lics"> (NEGATIVE MG/DL)</conten t> Hemoglobin NEGATIVE <content Saint [Presence] in styleCode="Mohan Noes Urine by Test d">Urine Blood Medical strip </content>NEGA Center TIVE <content styleCode="Jacey lics"> (NEGATIVE )</content> Nitrite NEGATIVE <content Saint [Presence] in styleCode="Mohan Noes Urine by Test d">Urine Medical strip Nitrite Center </content>NEGA TIVE <content styleCode="Jacey lics"> (NEGATIVE )</content> Protein NEGATIVE <content Saint [Mass/volume] styleCode="Mohan Tu in Urine by d">Urine Medical Test strip Protein Center </content>NEGA TIVE MG/DL<content styleCode="Jacey lics"> (NEGATIVE MG/DL)</conten t> pH of Urine by 4.5-8.0 <content Saint Test strip styleCode="Mohan Tu d">Urine pH Medical </content>6.0 Center <content styleCode="Jacey lics"> (4.5-8.0 )</content> Urobilinogen 0.2-1.0 <content Saint [Units/volume] styleCode="Mohan Ut in Urine by d">Urine Medical Test strip Urobilinogen Center </content>0.2 MG/DL<content styleCode="Jacey lics"> (0.2-1.0 MG/DL)</conten t> Leukocyte NEGATIVE <content Saint esterase styleCode="Mohan Tu [Presence] in d">Urine Medical Urine by Test Leukocyte Center strip </content>NEGA TIVE <content styleCode="Jacey lics"> (NEGATIVE )</content> ID Date Data Source [id number] 09/14/2019 01:30:00 AM [facility] -0500 Name Value Range Interpretation Description Data Sup porting Code Source(s) Document(s ) Cannabinoids <content Saint [Presence] in styleCode="Mohan Noes Urine by Screen d">Cannabinoid Medical method >50 ng/mL s Center </content>NEGA TIVE NG/ML (Reference Range: not available)<br/ > ID Date Data Source HematologyRou.[id number] 09/14/2019 01:25:00 AM [facility] 0500 Name Value Range Interpretation Description Data Sup porting Code Source(s) Document(s ) Hemoglobin 13.5-17. <content Saint [Mass/volume] in 5 styleCode="Bold Tu Blood ">Hemoglobin Medical </content>15.4 Center G/DL<content styleCode="Ital ics"> (13.5-17.5 G/DL)</content> Erythrocytes 4.4-5.9 <content Saint [#/volume] in styleCode="Bold Tu Blood by ">Red Blood Medical Automated count Cell Count Center </content>5.22 MCUMM<content styleCode="Ital ics"> (4.4-5.9 MCUMM)</content > Leukocytes 4.4-11.0 Above high <content Saint [#/volume] in normal styleCode="Bold Tu Blood by ">White Blood Medical Automated count Cell Count Center </content>15.43 KCUMM H<content styleCode="Ital ics"> (4.4-11.0 KCUMM)</content > Platelets 130-400 <content Saint [#/volume] in styleCode="Bold Tu Blood by ">Platelet Medical Automated count Count Center </content>273 KCUMM<content styleCode="Ital ics"> (130-400 KCUMM)</content > Hematocrit 41.0-53. <content Saint [Volume 0 styleCode="Bold Tu Fraction] of ">Hematocrit Medical Blood by </content>45.0 Center Automated count %<content styleCode="Ital ics"> (41.0-53.0 %)</content> Erythrocyte 11.5-14. <content Saint distribution 5 styleCode="Bold Ut width [Ratio] by ">Red Cell Medical Automated count Distribution Center Width </content>12.6 %<content styleCode="Ital ics"> (11.5-14.5 %)</content> Erythrocyte mean 32.0-37. <content [facility] corpuscular 0 styleCode="Bold Tu hemoglobin ">Mean Corpus. Medical concentration Hgb Center [Mass/volume] by Concentration Automated count (MCHC) </content>34.2 G/DL<content styleCode="Ital ics"> (32.0-37.0 G/DL)</content> Erythrocyte mean 80.0-100 <content Saint corpuscular .0 styleCode="Bold Tu volume [Entitic ">Mean Medical volume] by Corpuscular Center Automated count Volume </content>86.2 FL<content styleCode="Ital ics"> (80.0-100.0 FL)</content> Erythrocyte mean 26.0-34. <content Saint corpuscular 0 styleCode="Bold Tu hemoglobin ">Mean Medical [Entitic mass] Corposcular Center by Automated Hemoglobin count </content>29.5 PG<content styleCode="Ital ics"> (26.0-34.0 PG)</content> UNK 0.0 <content Saint styleCode="Bold Ut ">Nucleated Red Medical Blood Cell Center Count </content>0.00 KCUMM<content styleCode="Ital ics"> (0.0 KCUMM)</content > UNK 0 <content Saint styleCode="Bold Tu ">Nucleated Red Medical Blood Cell Center </content>0.0 /100<content styleCode="Ital ics"> (0 /100)</content> Platelet mean 8.0-11.0 Above high <content Saint volume [Entitic normal styleCode="Bold Tu volume] in Blood ">Mean Platelet Medical by Automated Volume Center count </content>11.4 FL H<content styleCode="Ital ics"> (8.0-11.0 FL)</content> ID Date Data Source GFR(Creatinine).[id number] 09/14/2019 01:25:00 AM [facility] 0-0500 Name Value Range Interpretation Code Description Data Nae rce(s) Supporting Document(s ) UNK > 60 <content [facility] styleCode="Bold"> Medical Cent er EGFR </content>130 GFR<content styleCode="Italic s"> (> 60 GFR)</content> ID Date Data Source CardiacMarkers.[id number] 09/14/2019 01:25:00 AM [facility] -0500 Name Value Range Interpretation Description Data Sup porting Code Source(s) Document(s ) Troponin < 0.034 <content Saint I.cardiac styleCode="Bold Tu [Mass/volume ">Troponin I Medical ] in Serum </content>< Center or Plasma 0.012 NG/ML<content styleCode="Ital ics"> (< 0.034 NG/ML)</content > ID Date Data Source [id number] 09/14/2019 01:25:00 AM [facility] Name Value Range Interpretation Description Data Sup porting Code Source(s) Document(s ) UNK 9-20 <content Saint styleCode="Mohan Tu d">BUN Medical </content>16 Center MG/DL<content styleCode="Jacey lics"> (9-20 MG/DL)</conten t> Sodium 137-145 <content Saint [Moles/volume] styleCode="Mohan Tu in Serum or d">Sodium Medical Plasma </content>139 Center MEQ/L<content styleCode="Jacey lics"> (137-145 MEQ/L)</conten t> Potassium 3.5-5.3 <content Saint [Moles/volume] styleCode="Mohan Tu in Serum or d">Potassium Medical Plasma </content>3.9 Center MEQ/L<content styleCode="Jacey lics"> (3.5-5.3 MEQ/L)</conten t> Carbon 22-30 <content Saint dioxide, total styleCode="Mohan Noes [Moles/volume] d">Carbon Medical in Serum or Dioxide Center Plasma </content>25 MEQ/L<content styleCode="Jacey lics"> (22-30 MEQ/L)</conten t> Chloride 98-107 <content Saint [Moles/volume] styleCode="Mohan Tu in Serum or d">Chloride Medical Plasma </content>103 Center MEQ/L<content styleCode="Jacey lics"> (98-107 MEQ/L)</conten t> Calcium 8.4-10.2 <content Saint [Mass/volume] styleCode="Mohan Noes in Serum or d">Calcium Medical Plasma </content>9.4 Center MG/DL<content styleCode="Jacey lics"> (8.4-10.2 MG/DL)</conten t> UNK > 60 <content Saint styleCode="Mohan Tu d">EGFR Medical </content>130 Center GFR<content styleCode="Jacey lics"> (> 60 GFR)</content> Creatinine 0.5-1.3 <content Saint [Mass/volume] styleCode="Mohan Noes in Serum or d">Creatinine Medical Plasma </content>0.7 Center MG/DL<content styleCode="Jacey lics"> (0.5-1.3 MG/DL)</conten t> Glucose 74-106 <content Saint [Mass/volume] styleCode="Mohan Noes in Serum or d">Glucose Medical Plasma </content>104 Center MG/DL<content styleCode="Jacey lics"> (74-106 MG/DL)</conten t> ID Date Data Source [id number] 07/31/1799 11:59:58 PM -04:56:02 [facility] Name Value Range Interpretation Code Description Data Nae rce(s) Supporting Document(s ) SARS-COV-2 [facility] RESP Diagnostics QL JAMIE+PROBE This lab was ordered by JUNE nevarez nd reported by [facility]. Procedure Social History Code Duration Value Status Description Data Source(s ) Smoking 09/15/2019 Denies Ever completed Denies Ever Smoked [facility] 06:04:00 PM EST Smoked Medical C enter Smoking 09/15/2019 Daily Smoker completed Daily Smoker [facility] 03:40:00 AM EST Medical C enter Smoking 09/14/2019 Daily Smoker completed Daily Smoker [facility] 10:52:00 PM EST Medical C enter Smoking 09/14/2019 Daily Smoker completed Daily Smoker [facility] 09:22:00 PM EST Medical C enter Smoking 09/14/2019 Daily Smoker completed Daily Smoker [facility] 07:00:00 AM EST Medical C enter Smoking 09/14/2019 Daily Smoker completed Daily Smoker [facility] 01:08:00 AM EST Medical C enter Smoking 09/14/2019 Daily Smoker completed Daily Smoker [facility] 12:51:00 AM EST Medical C enter Vital Signs ID Date Data Source UNK Name Value Range Interpretation Code Description Data Source(s) Diastolic blood 68 mm[Hg] 0 - 999 Normal (applies to 68 mm[Hg] [facility] non-numeric [facility] results) Systolic blood 107 mm[Hg] 0 - 999 Below low normal 107 mm[Hg] [facility] Respiratory rate 16 0 - 999 Normal ([facility] to [facility]) Heart rate 64 0 - 999 Normal (applies to 64 [facility] [facility] non-numeric [facility] System results) Body temperature 36.1 [place] 0 - 99.9 Below low normal 36.1 [place] [facility] Body temperature 97 [degF] 0 - 200 Normal (applies to 97 [degF] [facility] non-numeric Health System results) Body mass index 29.8 kg/m2 29.8 kg/m2 [facility] ([facility] [Ratio] Health Syst em Body surface area 2 m2 2 m2 [facility] ore Derived from Health Syste m formula Body weight 91.62 kg 91.62 kg [facility] Body height 175.26 cm 175.26 cm [facility] System Oxygen saturation 98 % 0 - 999 Normal (applies to 98 % [facility] in Arterial blood [facility] by Pulse oximetry results) Heart rate 81 /min 81 /min [facility] Diastolic blood 84 mm[Hg] 84 mm[Hg] [facility] Systolic blood 118 mm[Hg] 118 mm[Hg] [facility] Medical [place] Body temperature 36.050337 36.956775 [facility] Respiratory rate 19 /min 19 /min [facility] Heart rate 64 /min 64 /min [facility] Diastolic blood 79 mm[Hg] 79 mm[Hg] [facility] Systolic blood 123 mm[Hg] 123 mm[Hg] [facility] Body temperature 36.764533 36.331769 [facility] Respiratory rate 20 /min 20 /min [facility] Heart rate 62 /min 62 /min [facility] Diastolic blood 68 mm[Hg] 68 mm[Hg] [facility] Medical [place] Systolic blood 107 mm[Hg] 107 mm[Hg] [facility] Medical [place] Body weight 91.715879 91.537341 kg [facility] Measured kg Medical Center Heart rate 81 /min 81 /min [facility] Diastolic blood 76 mm[Hg] 76 mm[Hg] [facility] Systolic blood 116 mm[Hg] 116 mm[Hg] [facility] Body temperature 36.857115 36.979213 [facility] Respiratory rate 19 /min 19 /min [facility] Heart rate 64 /min 64 /min [facility] Diastolic blood 75 mm[Hg] 75 mm[Hg] [facility] Systolic blood 120 mm[Hg] 120 mm[Hg] [facility] Body temperature 36.792648 36.095353 [facility] Respiratory rate 18 /min 18 /min [facility] Body temperature 36.437859 36.686970 [facility] Respiratory rate 20 /min 20 /min [facility] Body weight 90.035463 90.220133 kg [facility] Measured kg Medical Center Body weight 93.208722 93.465819 kg [facility] Measured kg [facility] Center Body weight 91.985906 91.528479 kg [facility] Measured kg Medical Center Body height 175.754344 175.938973 cm [facility] Body mass index 29.95 kg/m2 29.95 kg/m2 [facility] (BMI) [Ratio] Medical [address] Oxygen saturation 95 % 95 % [facility] in Arterial blood Medical [place] by Pulse oximetry Body temperature 36.994790 36.639028 [facility] Respiratory rate 16 /min 16 /min [facility] Heart rate 74 /min 74 /min [facility] Diastolic blood 62 mm[Hg] 62 mm[Hg] [facility] Systolic blood 110 mm[Hg] 110 mm[Hg] [facility] Oxygen saturation 98 % 98 % [facility] blood [facility] by Pulse oximetry Respiratory rate 16 /min 16 /min [facility] Heart rate 72 /min 72 /min [facility] Diastolic blood 82 mm[Hg] 82 mm[Hg] [facility] Systolic blood 129 mm[Hg] 129 mm[Hg] [facility] Oxygen saturation 95 % 95 % [facility] blood [facility] by Pulse oximetry Body temperature 36.769245 36.434372 [facility] Respiratory rate 18 /min 18 /min [facility] Heart rate 70 /min 70 /min [facility] Diastolic blood 89 mm[Hg] 89 mm[Hg] [facility] Systolic blood 146 mm[Hg] 146 mm[Hg] [facility] Oxygen saturation 98 % 98 % [facility] blood [facility] by Pulse oximetry Body temperature 36.799856 36.298494 [facility] Respiratory rate 18 /min 18 /min [facility] Heart rate 69 /min 69 /min [facility] Diastolic blood 55 mm[Hg] 55 mm[Hg] [facility] Systolic blood 131 mm[Hg] 131 mm[Hg] [facility] Oxygen saturation 96 % 96 % [facility] blood [facility] by Pulse oximetry Body temperature 37.900807 37.916037 [facility] Respiratory rate 17 /min 17 /min [facility] Heart rate 78 /min 78 /min [facility] Diastolic blood 68 mm[Hg] 68 mm[Hg] [facility] pressure [facility] Center Systolic blood 118 mm[Hg] 118 mm[Hg] [facility] pressure Medical Center Body temperature 36.944916 36.172463 [facility] Body weight 85.300097 85.662832 kg [facility] hs Measured kg [facility] Body height 170.229570 170.101734 cm [facility] cm Medical Center Body mass index 29.3 kg/m2 29.3 kg/m2 [facility] (BMI) [Ratio] Medical [facility] [place] [facility] Patient Treatment Plan of Care Planned Activity Planned Date Details Description Data Source (s) 24 HR Nicotine 0.583 10/25/2019 03:43:28 [facility] MG/HR Transdermal Patch PM EDT Syst em aripiprazole 5 MG Oral 10/25/2019 03:43:03 [facility] Tablet PM EDT System Sertraline 50 MG Oral 10/25/2019 03:42:53 [facility] Tablet PM EDT System [place] Carbonate 300 MG 12/02/2017 02:04:14 [facility] Oral Capsule PM EDT System aripiprazole 5 MG Oral 12/02/2017 02:03:57 [facility] Tablet PM EDT System aripiprazole 15 MG Oral [facility] Melatonin 3 MG Oral [facility] Sertraline 100 MG Oral [facility]
[2020-05-02] MEDS ORDERED: IBUPROFEN 600 MG TABLET (FP) PO ONE ×2 (21:30→21:34)
--- NOTE | 2020-05-02 21:31 | PDOC ---
History of Present Illness - General Chief Complaint: Alcohol intoxication Stated Complaint: INTOX History Source: Patient Exam Limitations: No Limitations - History of Present Illness Initial Comments: 05/02/20 21:47 This is a 44-year-old male with long history of alcohol abuse who comes in complaining of being intoxicated and in withdrawal. Patient was recently released from [facility] approximately 10 days ago. Patient also is complaining that he fell and is having left sided hip pain. Patient denies any other complaints. Allergies: as per nursing notes Past Medical History: none Social history: No smoking. +alcohol. No illicit drugs. Surgical history: None General: No fevers or chills, no weakness, no weight loss HEENT: No change in vision. No sore throat,. No ear pain CardioVascular: no chest discomfort. No shortness of breath Respiratory:No cough, or wheezing. Gastrointestinal: no nausea, vomiting, diarrhea or constipation, No rectal bleeding Genitourinary: No dysuria, hematuria, or frequency Musculoskeletal: Left hip and pelvis pain Neurologic: No headache, vertigo, dizziness or loss of consciousness Psychiatric: nor depression Skin: No rashes or easy bruising Endocrine: no increased thirst or abnormal weight change Allergic: no skin or latex allergy All other systems reviewed and normal Exam: General: Well-nourished well-developed individual, no acute distress HEENT: Throat: Normal, tonsils normal, no erythema or exudate Neck: Supple, no meningeal signs, no lymphadenopathy Eyes::Pupils equal reactive and round, extraocular motion intact Chest: Nontender to palpation Cardiac: S1-S2 normal, regular rate and rhythm, no murmurs rubs or gallops Respiratory: Lungs clear to auscultation bilateral Abdomen: Soft, nondistended, normal bowel sounds, there is no tenderness on palpation diffusely Extremities: Warm, dry, no cyanosis, clubbing, or edema Present hip there is tenderness on palpation over the left hip however there is full range of motion with minimal discomfort. Neurovascular distally is intact. Skin: No rashes Neuro: Alert and oriented x3, CN II - XII intact, nonfocal exam with normal strength, normal sensation, normal reflexes, normal gait, Psych: Normal mood and affect Past History - Medical History Allergies/Adverse Reactions: Allergies Allergy/AdvReac Type Severity Reaction Status Date / Time No Known Allergies Allergy Verified 04/17/20 12:48 Home Medications: Ambulatory Orders NK [No Known Home Medication] 04/17/20 Anemia: No Asthma: No Cancer: No Cardiac Disorders: No CVA: No COPD: No CHF: No Diabetes: No GI Disorders: No Disorders: No HTN: No Hypercholesterolemia: No Kidney Stones: No Seizures: No Thyroid Disease: No Other medical history: ETOH ABUSE - Surgical History Abdominal Surgery: No Appendectomy: No Cardiac Surgery: No Cholecystectomy: No Lung Surgery: Yes (Puncture lung 2009) Neurologic Surgery: No Orthopedic Surgery: No - Reproductive History Testicular Surgery: No - Psycho-Social/Smoking History Smoking History: Unknown if ever smoked Have you smoked in the past 12 months: Yes Number of Cigarettes Smoked Daily: 20 Cigars Per Day: 0 Information on smoking cessation initiated: Yes 'Breaking Loose' booklet given: 04/17/20 Trauma Specific PMHX - Complaint Specific PMHX Arthritis: No *Physical Exam - Vital Signs Last Vital Signs Temp Pulse Resp BP Pulse Ox 100.5 F H 103 H 18 130/60 99 05/02/20 21:08 05/02/20 21:08 05/02/20 21:08 05/02/20 21:08 05/02/20 21:08 ED Treatment Course - LABORATORY CBC & Chemistry Diagram: 05/02/20 22:00 05/02/20 22:00 Discharge - Discharge Information Problems reviewed: Yes Clinical Impression/Diagnosis: Fever Qualifiers: Fever type: unspecified Qualified Code(s): R50.9 - Fever, unspecified Leukocytosis Qualifiers: Leukocytosis type: unspecified Qualified Code(s): D72.829 - Elevated white blood cell count, unspecified Alcohol withdrawal Qualifiers: Complication of substance-induced condition: uncomplicated Qualified Code(s): F10.230 - Alcohol dependence with withdrawal, uncomplicated Condition: Stable - Admission Yes - Follow up/Referral - Patient Discharge Instructions - Post Discharge Activity
[2020-05-02 22:27] LABS: HEMATOCRIT 43.1 % (35.4-49); HEMOGLOBIN 15.1 GM/dl (11.7-16.9); MCH 30.8 pg (25.7-33.7); MEAN CELL VOLUME 88.1 fl (80-96); MEAN PLT VOLUME 9.6 fl (7.5-11.1); PLATELET COUNT 304 K/MM3 (134-434); RBC 4.89 M/mm3 (4.00-5.60); RDW 12.9 % (11.9-15.9); WHITE BLOOD COUNT 24.6 K/mm3 (4.0-10.8)
[2020-05-02 22:42] LABS: ALBUMIN 4.2 g/dl (3.4-5.0); BILIRUBIN,TOTAL 0.8 mg/dl (0.2-1); CALCIUM 8.7 mg/dl (8.5-10); TOT PROT 7.4 g/dl (6.4-8.2)
[2020-05-02] MEDS ORDERED: chlordiazePOXIDE HCL 25 MG CAPSULE PO ONE (23:12)
[2020-05-02 23:16] LABS: PLATELET ESTIMATE ADEQUATE
[2020-05-02] MEDS ORDERED: chlordiazePOXIDE HCL 25 MG CAPSULE ONE (23:17)
[2020-05-02 23:24] LABS: EPITHELIAL CELLS RARE /hpf
[2020-05-03 00:06] LABS: COCAINE, UR NEGATIVE ng/ml (CUTOFF=300); METHADONE, UR NEGATIVE ng/ml (CUTOFF=300); OPIATES, URI NEGATIVE ng/ml (CUTOFF=300); PHENCYCLIDINE,URINE NEGATIVE ng/ml (CUTOFF=25); URINE AMPHETAMINES NEGATIVE ng/ml (CUTOFF=500); URINE BARBITURATES NEGATIVE ng/ml (CUTOFF=200)
[2020-05-03] MEDS ORDERED: chlordiazePOXIDE HCL 25 MG CAPSULE PO PRN ×2 (00:07→03:00)
[2020-05-03 00:41] LABS: URINE BENZODIAZEPINES POSITIVE ng/ml (CUTOFF=200)
--- OUTSIDE RECORDS SUMMARY | 2020-05-03 01:59 | XMS ---
:1975 Author Organization [facility] Care Team Providers Name Role Phone DEBI [...] is protected by Article 27-F of the [facility] Public Health law. If you continue you may haveaccess to information: Regarding HIV / AIDS; Provided by facilities licensed or operated by the [facility] Office of Mental Health; or Provided by the [facility] Office for People With Developmental Disabilities. If such information is present, then the following [facility] mandated warning applies: This information has been [...] law may result in a fine or fci sentence or both. A general authorization for [...] Attender: TAMMY WONG H-HAL2 09/14/2019 12:39: 00 [facility] TAMMY RAttender: STAFF AM EST - [address] [place] [address] ED STAFF PHYSICIANAdmitter: 01:27:00 PM EDT TAMMY MUNOZ RReferrer: TAMMY MUNOZ R Patient discharged. Inpatient Attender: CHECO CARRERA H-HAL6 03/20/2018 07:42 :00 [facility] DESEANERAdmitter: AM EDT - 03/21/2018 [facility] CHECO CARRERA 01:35:00 PM EDT TATIOPHERReferrer: CHECO KESSLER Medications Medication Brand Start Product Dose Route Administrative Pharmacy [facility] Indications Reaction Description Data Name Date Form Instructions Instructions Source(s) 24 HR nicoti [id number] active Nicoderm C- Q [facility] 0.583 MG/HR mg/24 03:43: H} Syste m Transdermal hr 28 PM Patch transd EDT nicotine 14 ermal mg/24 hr film, transdermal extend film, ed extended releas release e aripiprazol ARIPip [id number] active Aripi prazole [facility] e 5 MG Oral razole 2019 {tab( Healt h Tablet 5 mg 03:43: s)} System ARIPiprazol oral 03 PM e 5 mg oral tablet EDT tablet Sertraline sertra T88303 active Sertra line [facility] 50 MG Oral line 2019 {tab( Health Tablet 50 mg 03:42: s)} System sertraline oral 53 PM 50 mg oral tablet EDT tablet [facility] lithiu F72516 complet [facility] Carbonate m 300 2017 {cap( ed Carbonate Hea lth 300 MG Oral mg 02:04: s)} System Capsule oral 14 PM lithium 300 capsul EDT mg oral e capsule aripiprazole ARIPiprazole 12/02/2017 1 E48384 active ARIPiprazole 5 mg oral tablet; 1 tab(s) orally once a day Ordered: 02-Dec-2017 Start: 02-Dec-2017 E nd: 31-Dec-2017 [facility] 5 MG Oral 5 mg oral 02:03:57 PM {tab(s)} Quantity: 30 [facility] Tablet tablet EDT Refills: 0 System ARIPiprazole 5 mg oral tablet Sertraline 100 MG sertraline 100 mg [address] [facility] Oral Tablet Tablet, Ordered By: [facility] sertraline 100 mg Abbey-Nafisa Wong, Tablet, Ordered By: MDDirections: 1 Abbey-Nafisa Wong, tablet oral daily on MDDirections: 1 waking tablet oral daily on waking Melatonin 3 MG Oral melatonin 3 mg 2 completed [facility] Tablet melatonin 3 mg Tablet, Ordered By: [facility] Tablet, Ordered By: Abbey-Nafisa Wong, Abbey-Nafisa Wong, MDDirections: 2 MDDirections: 2 tablet oral daily at tablet oral daily at bedtime bedtime aripiprazole 15 MG aripiprazole 15 mg 1 complet ed [facility] Oral Tablet Tablet, Ordered By: [facility] aripiprazole 15 mg Abbey-Nafisa Wong, Tablet, Ordered By: MDDirections: 1 Abbey-Nafisa Wong, tablet oral daily at MDDirections: 1 bedtime tablet oral daily at bedtime Insurance Providers Payer name Policy type Policy ID Covered Covered alliance party's Policy P escobar / Coverage alliance party ID relationship to [facility] ormation type rivera [facility] [id number] HEALTH NON CAP Medicaid E Medicaid [id number] W [facility] Medicaid [id number] 1 [id number] Medicaid Self Pay Self Pay 1 Medicaid Medicaid [id number] O W [id number] Problems, Conditions, and Diagnoses Code Display Name Description Problem Type Effective Data Dates Source(s) F25.9 Schizoaffective Schizoaffective 30556-8 10/19/2019 [facility] disorder disorder 12:00:00 AM Health System EDT F25.9 Schizoaffective Schizoaffective Diagnosis 10/19/2019 [facility] disorder, [facility]:54:[facility] SCHIZOAFFECTIVE SCHIZOAFFECTIVE Diagnosis 10/19/2019 [facility] DISORDER DISORDER 07:54:00 PM [facility] Z91.5 Personal history of History of Diagnosis 10/19/2019 [facility] self-harm self-harm 07:54:00 PM [facility] F17.210 Nicotine Cigarette nicotine Diagnosis 10/19/2019 [facility] dependence, dependence without 07:54:00 PM Eric on cigarettes, complication EDT Hospital uncomplicated D72.829 Elevated white Leukocytosis Diagnosis 10/19/2019 S - [place] unt blood cell count, 07:54:00 [facility] Y90.0 Blood alcohol level BLOOD [...] Chest Single AP view XR 11/26/2017 [facility] Chest Single AP view 12:11:00 AM System EDT - 11/26/2017 12:11:00 AM EDT Computed tomography of 11/26/2017 [facility] abdomen (procedure) 12:11:00 AM System EDT - 11/26/2017 12:11:00 AM EDT Electrocardiographic 11/25/2017 [facility] procedure (procedure) 10:50:03 PM System EDT - 11/25/2017 10:54:00 PM EDT Results ID Date Data Source [id number] 04/22/2020 11:57:00 AM EDT [facility] Name Value Range Interpretation Code Description Data Nae rce(s) Supporting Document(s ) SARS-CoV-2 [facility] RNA Resp Ql JAMIE+probe This lab was ordered by [facility] a nd reported by [facility]. ID Date Data Source [id number] 04/17/2020 01:40:00 PM EDT [facility] Name Value Range Interpretation Description Data Sup porting Code Source(s) Document(s ) SARS [facility] coronavirus 2 RNA This lab was ordered by [facility] [address] meredith Dykes Inter and reported by [facility]. ID Date Data Source [id number] 04/14/2020 07:57:00 AM EDT [facility] System Name Value Range Interpretation Code Description Data Nae rce(s) Supporting Document(s ) SARS-CoV-2 [facility] RNA Resp Health System Ql JAMIE+probe This lab was ordered by [facility] a nd reported by [facility]. ID Date Data Source [id number] 04/06/2020 11:11:00 PM EDT [facility] Name Value Range Interpretation Code Description Data Nae rce(s) Supporting Document(s ) SARS-CoV-2 [facility] RNA Resp Ql JAMIE+probe This lab was ordered by [facility] a nd reported by [facility]. ID Date Data Source [id number] 10/26/2019 06:36:00 PM EDT [facility] System Name Value Range Interpretation Description [...] } results) System ID Date Data Source [id number] 10/26/2019 06:36:00 PM EDT [facility] alth [...] urine test abnormalities ID Date Data Source [id number] 10/26/2019 06:36:00 PM EDT [facility] Name Value Range Interpretation Description Data Sup porting Code Source(s) Document(s ) AlcoholE NON DETECTED Normal (applies to Alcohol Ethyl, [facility] thyl,Blo None non-numeric Blood Health System od Detected results) ID Date Data Source [id number] 10/26/2019 06:36:00 PM EDT [facility] Name Value Range Interpretation Description Data Source(s ) Supporting Code Document(s ) Lipase 45 U/L Normal (applies to Lipase, Serum [facility] [Enzymatic non-numeric Health System activity/vo results) lume] in Serum or Plasma ID Date Data Source [id number] 10/26/2019 06:36:00 PM EDT [facility] He alth [...] mmol/L non-numeric Calcium, Health System B results) [id number] 39.70 % Normal (applies to O2 Saturation* [facility] tion* non-numeric Health System results) ID Date Data Source [id number] 10/26/2019 06:36:00 PM EDT [facility] Name Value Range Interpretation Description Data Source(s ) Supporting Code Document(s ) Troponin 0.00 Normal (applies to Troponin I [facility] IQuantit ng/mL non-numeric Quantitative - Health System ative-MV results) MV Only Only ID Date Data Source [id number] 10/26/2019 06:36:00 PM EDT [facility] alth [...] Urine non-numeric results) Cut-off = 200 ng/mL [id number],Urine Negative Normal (applies to Opiate 300, [facility] non-numeric results) Urine System Cut-off = 300 ng/mL Methadone Negative Normal (applies to Methadone Level, [facility] [Mass/volume] in non-numeric Urine System Urine results) [...] = 25 ng/mL ID Date Data Source [id number] 10/26/2019 06:36:00 PM EDT [facility] Name Value Range Interpretation Description Data Sup porting Code Source(s) Document(s ) [address] [facility] < 0.[address] Level, [facility] [Mass/volum Serum Health System e] in Serum or Plasma Performed At [facility], [address] [address] ID Date Data Source [id number] 10/26/2019 06:36:00 PM EDT [facility] alth [...] System Automated count ID Date Data Source [id number] 10/26/2019 06:36:00 PM EDT [facility] alth System Name Value Range Interpretation Description Data Sup porting Code Source(s) Document(s ) Human NONREACTIVE Normal (applies [facility] test, [facility] Normal Range: to non-numeric Routine Health cy virus Non results) (antigen and System antibody titer ReactiveNegativ antibody measurement e for HIV-1 testing) (procedure) antigen and HIV-1/HIV-2 antibodies. No laboratory evidence of HIV infection.Test was performed at [address] ID Date Data Source [id number] 10/26/2019 06:36:00 PM EDT [facility] alth System Name Value Range Interpretation Description [...] System Plasma results) ID Date Data Source [id number] 10/26/2019 06:36:00 PM EDT [facility] Felix alth System Name Value Range Interpretation [...] Serum or Plasma results) <200 mg/dL = [id number] - 239 md/dL = Borderline>240 mg/dL = [...] CHDRisk 4.34 Normal (applies to [facility]D Risk [facility] non-numeric results) System ID Date Data Source [id number] 10/14/2019 01:09:00 PM EDT [facility] Name Value Range Interpretation Code Description Data Nae rce(s) Supporting Document(s ) SARS-CoV-2 [facility] RNA XXX Ql Health System JAMIE+probe This lab was ordered by [facility] a nd reported by [facility]. ID Date Data Source HematologyRou.[id number] 09/16/2019 06:36:00 AM ROSELINE [facility] 0500 Name Value Range Interpretation Description [...] Leukocytes 4.4-11.0 <content Saint [#/volume] in styleCode="Bold [facility] Blood by ">White Blood Medical Automated count Cell Count Center </content>7.52 KCUMM<content styleCode="Ital ics"> (4.4-11.0 KCUMM)</content > Hematocrit 41.0-53. <content Saint [Volume 0 styleCode="Bold [facility] Fraction] of ">Hematocrit Medical Blood by [...] ics"> (0 /100)</content> ID Date Data Source [id number] 09/15/2019 12:35:00 AM EST [facility] Name Value Range Interpretation Description Data Sup porting Code Source(s) Document(s ) Triglyceride < 150 <content Saint [Mass/volume] in styleCode="Mohan Tu Serum or Plasma d">Triglycerid [facility] </content>122 MG/DL<content styleCode="Jacey lics"> (< 150 MG/DL)</conten t> UNK < 100 <content Saint styleCode="Mohan Tu d">LDL-Cholest Medical partha Speculator </content>80 MG/DL<content styleCode="Jacey lics"> (< 100 MG/DL)</conten t> Cholesterol -<200 <content Saint [Mass/volume] in styleCode="Mohan Mae Serum or Plasma d">Cholesterol Medical </content>146 Center MG/DL<content styleCode="Jacey lics"> (-<200 MG/DL)</conten t> UNK > 60 Below low normal <content Saint styleCode="Mohan Tu d">HDL- Medical Cholesterol Speculator </content>42 MG/DL L<content styleCode="Jacey lics"> (> 60 MG/DL)</conten t> ID Date Data Source CHMROUTINECCDA.[id number] 09/15/2019 12:35:00 AM [facility] -0500 Name Value Range Interpretation Code Description Data Nae rce(s) Supporting Document(s ) UNK 4.2-5.8 <content [facility] styleCode="Bold" Medical Cente r >Hemoglobin A1C </content>5.7 %<content styleCode="Itali cs"> (4.2-5.8 %)</content> ID Date Data Source Urinalysis.[id number] 09/14/2019 01:30:00 AM [facility] 0 Name Value Range Interpretation Description [...] by Test d">Urine Medical strip Specific Center Elliott </content>1.01 0 L<content styleCode="Jacey lics"> (1.015-1.025 )</content> [...] )</content> Urobilinogen 0.2-1.0 <content Saint [Units/volume] styleCode="Mohan Tu in Urine by d">Urine Medical Test strip Urobilinogen Center </content>0.2 MG/DL<content styleCode="Jacey lics"> (0.2-1.0 MG/DL)</conten t> Leukocyte NEGATIVE <content Saint esterase styleCode="Mohan Tu [Presence] in d">Urine Medical Urine by Test Leukocyte Center strip </content>NEGA TIVE <content styleCode="Jacey lics"> (NEGATIVE )</content> ID Date Data Source CHMROUTINECCDA.[id number] 09/14/2019 01:30:00 AM [facility] -0500 Name Value Range Interpretation Description Data Sup porting Code Source(s) Document(s ) Cannabinoids <content Saint [Presence] in styleCode="Mohan Noes Urine by Screen d">Cannabinoid Medical method >50 ng/mL s Center </content>NEGA TIVE NG/ML (Reference Range: not available)<br/ > ID Date Data Source HematologyRou.[id number] 09/14/2019 01:25:00 AM [facility] 0500 Name Value Range Interpretation Description [...] (26.0-34.0 PG)</content> UNK 0.0 <content Saint styleCode="Bold Tu ">Nucleated [...] ics"> (8.0-11.0 FL)</content> ID Date Data Source GFR(Creatinine).[id number] 09/14/2019 01:25:00 AM [facility] 0-0500 Name Value Range Interpretation Code Description Data Nae rce(s) Supporting Document(s ) UNK > 60 <content [facility] styleCode="Bold"> Medical Cent er EGFR </content>130 GFR<content styleCode="Italic s"> (> 60 GFR)</content> ID Date Data Source CardiacMarkers.[id number] 09/14/2019 01:25:00 AM [facility] -0500 Name Value Range Interpretation Description Data Sup porting Code Source(s) Document(s ) Troponin < 0.034 <content Saint I.cardiac styleCode="Bold Tu [Mass/volume ">Troponin I Medical ] in Serum </content>< Center or Plasma 0.012 NG/ML<content styleCode="Ital ics"> (< 0.034 NG/ML)</content > ID Date Data Source [id number] 09/14/2019 01:25:00 AM [facility] Name Value Range Interpretation Description Data Sup [...] t> Carbon 22-30 <content Saint dioxide, total styleCode="Mohna Noes [Moles/volume] d">Carbon Medical in Serum or [...] (74-106 MG/DL)</conten t> ID Date Data Source [id number] 07/31/1799 11:59:58 PM -04:56:02 [facility] [...] Daily Smoker completed Daily Smoker [facility] 03:40:00 AM EST Medical C enter Smoking 09/14/2019 Daily Smoker completed Daily Smoker [facility] 10:52:00 PM EST Medical C enter Smoking 09/14/2019 Daily Smoker completed Daily Smoker [facility] 09:22:00 PM EST Medical C enter Smoking 09/14/2019 Daily Smoker completed Daily Smoker [facility] 07:00:00 AM EST Medical C enter Smoking 09/14/2019 Daily Smoker completed Daily Smoker [facility] 01:08:00 AM EST Medical C enter Smoking 09/14/2019 Daily Smoker completed Daily Smoker [facility] 12:51:00 AM EST Medical C enter Vital Signs ID Date Data Source UNK Name Value Range Interpretation Code Description Data Source(s) Diastolic blood 68 mm[Hg] 0 - 999 Normal (applies to 68 mm[Hg] [facility] non-numeric [facility] System results) Systolic blood 107 mm[Hg] 0 - 999 Below low normal 107 mm[Hg] [facility] Respiratory rate 16 0 - 999 Normal (applies to 16 [facility] results) Heart rate 64 0 - 999 Normal (applies to 64 [facility] non-numeric [facility] System results) Body temperature 36.1 Shelbi 0 - 99.9 Below low normal 36.1 [facility] Body temperature 97 [degF] 0 - 200 Normal (applies to 97 [degF] [facility] non-numeric Health System results) Body mass index 29.8 kg/m2 29.8 kg/m2 [facility] (BMI) [Ratio] Health Syst em Body surface area 2 m2 2 m2 [facility] ore Derived from Health Syste m formula Body weight 91.62 kg 91.62 kg [facility] Health System Body height 175.26 cm 175.26 cm [facility] Oxygen saturation 98 % 0 - 999 Normal (applies to 98 % [facility] in Arterial blood [facility] Health System by Pulse oximetry results) Heart rate 81 /min 81 /min [facility] Diastolic blood 84 mm[Hg] 84 mm[Hg] [facility] Systolic blood 118 mm[Hg] 118 mm[Hg] [facility] Medical Speculator Body temperature 36.379511 36.630586 Shelbi [facility] Respiratory rate 19 /min 19 /min [facility] Heart rate 64 /min 64 /min [facility] Diastolic blood 79 mm[Hg] 79 mm[Hg] [facility] Systolic blood 123 mm[Hg] 123 mm[Hg] [facility] Body temperature 36.094255 36.326620 Shelbi [facility] Respiratory rate 20 /min 20 /min [facility] Heart rate 62 /min 62 /min [facility] Diastolic blood 68 mm[Hg] 68 mm[Hg] [facility] Medical Speculator Systolic blood 107 mm[Hg] 107 mm[Hg] [facility] Medical Speculator Body weight 91.170180 91.567187 kg [facility] Measured kg Medical Center Heart rate 81 /min 81 /min [facility] Diastolic blood 76 mm[Hg] 76 mm[Hg] [facility] Systolic blood 116 mm[Hg] 116 mm[Hg] [facility] Body temperature 36.716382 36.803403 [facility] Respiratory rate 19 /min 19 /min [facility] Heart rate 64 /min 64 /min [facility] Diastolic blood 75 mm[Hg] 75 mm[Hg] [facility] Systolic blood 120 mm[Hg] 120 mm[Hg] [facility] Body temperature 36.669612 36.387064 Shelbi [facility] Respiratory rate 18 /min 18 /min [facility] Body temperature 36.211556 36.922524 Shelbi [facility] Respiratory rate 20 /min 20 /min [facility] Body weight 90.717265 90.523355 kg [facility] Measured kg [facility] Center Body weight 93.323167 93.007521 kg [facility] Measured kg [facility] Center Body weight 91.046503 91.854865 kg [facility] hs Measured kg [facility] Center Body height 175.677924 175.501266 cm [facility] Body mass index 29.95 kg/m2 29.95 kg/m2 [facility] (BMI) [Ratio] Medical [facility] Oxygen saturation 95 % 95 % [facility] in Arterial blood Medical Speculator by Pulse oximetry Body temperature 36.976185 36.362754 [facility] Respiratory rate 16 /min 16 /min [facility] Heart rate 74 /min 74 /min [facility] Diastolic blood 62 mm[Hg] 62 mm[Hg] [facility] Systolic blood 110 mm[Hg] 110 mm[Hg] [facility] Oxygen saturation 98 % 98 % [facility] blood [facility] by Pulse oximetry Respiratory rate 16 /min 16 /min [facility] Heart rate 72 /min 72 /min [facility] Diastolic blood 82 mm[Hg] 82 mm[Hg] [facility] Systolic blood 129 mm[Hg] 129 mm[Hg] [facility] Oxygen saturation 95 % 95 % [facility] blood [facility] by Pulse oximetry Body temperature 36.232814 36.327415 [facility] Respiratory rate 18 /min 18 /min [facility] Heart rate 70 /min 70 /min [facility] Diastolic blood 89 mm[Hg] 89 mm[Hg] [facility] Systolic blood 146 mm[Hg] 146 mm[Hg] [facility] Oxygen saturation 98 % 98 % [facility] blood [facility] by Pulse oximetry Body temperature 36.272189 36.656514 [facility] Respiratory rate 18 /min 18 /min [facility] Heart rate 69 /min 69 /min [facility] Diastolic blood 55 mm[Hg] 55 mm[Hg] [facility] Systolic blood 131 mm[Hg] 131 mm[Hg] [facility] Oxygen saturation 96 % 96 % [facility] blood [facility] by Pulse oximetry Body temperature 37.732166 37.012704 [facility] Respiratory rate 17 /min 17 /min [facility] Heart rate 78 /min 78 /min [facility] Diastolic blood 68 mm[Hg] 68 mm[Hg] [facility] pressure Medical Center Systolic blood 118 mm[Hg] 118 mm[Hg] [facility] pressure Medical Center Body temperature 36.501574 36.536777 Shelbi [facility] Body weight 85.186271 85.943865 kg [facility] hs Measured kg [facility] Body height 170.369585 170.725767 cm [facility] cm Medical Center Body mass index 29.3 kg/m2 29.3 kg/m2 [facility] (BMI) [Ratio] Medical [facility] ter Patient Treatment Plan of Care Planned Activity Planned Date Details Description Data Source (s) 24 HR Nicotine 0.583 10/25/2019 03:43:28 [facility] MG/HR Transdermal Patch PM EDT Syst em aripiprazole 5 MG Oral 10/25/2019 03:43:03 [facility] Tablet PM EDT System Sertraline 50 MG Oral 10/25/2019 03:42:53 [facility] Tablet PM EDT [facility] Carbonate 300 MG 12/02/2017 02:04:14 [facility] Oral Capsule PM EDT System aripiprazole 5 MG Oral 12/02/2017 02:03:57 [facility] Tablet PM EDT System aripiprazole 15 MG Oral [facility] Melatonin 3 MG Oral [facility] Sertraline 100 MG Oral [facility]
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
[2020-05-03] MEDS ORDERED: chlordiazePOXIDE HCL 25 MG CAPSULE PO SCH (05:00)
[2020-05-03] MEDS: chlordiazePOXIDE HCL 25 MG CAPSULE PO SCH ×6 (05:48→22:33)
[2020-05-03] MEDS: SODIUM CHLORIDE 1,000 ML IV SCH ×2 (05:49→06:00)
[2020-05-03 08:18] LABS: EOS % 2.2 % (0-4.5); HEMATOCRIT 41.6 % (35.4-49); HEMOGLOBIN 13.9 GM/dL (11.7-16.9); MCH 29.4 pg (25.7-33.7); MCHC 33.5 g/dl (32.0-35.9); MEAN CELL VOLUME 87.7 fl (80-96); MEAN PLT VOLUME 9.5 fl (7.5-11.1); MONO % 11.6 % (3.8-10.2); NEUT % 75.2 % (42.8-82.8); PLATELET COUNT 253 K/MM3 (134-434); RBC 4.74 M/mm3 (4.00-5.60); RDW 13.6 % (11.9-15.9); WHITE BLOOD COUNT 11.1 K/mm3 (4.0-10.0)
[2020-05-03 08:52] LABS: ALBUMIN 3.5 g/dl (3.4-5.0); BLOOD UREA NITROGEN 16.1 mg/dL (7-18); CALCIUM 8.4 mg/dL (8.5-10.1); CREATININE 0.9 mg/dL (0.55-1.3); TOT PROT 7.1 g/dl (6.4-8.2)
[2020-05-03] MEDS: THIAMINE HCL 100 MG TABLET (FP) PO SCH (10:19)
[2020-05-03] MEDS: FOLIC ACID 1 MG TABLET (FP) PO SCH (10:19)
[2020-05-03 11:22] LABS: PLATELET ESTIMATE NORMAL
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
--- NOTE | 2020-05-03 15:58 | PN ---
Teaching Attending Note Name of Resident: Eder Christie ATTENDING PHYSICIAN STATEMENT I saw and evaluated the patient. I reviewed the resident's note and discussed the case with the resident. I agree with the resident's findings and plan as documented. SUBJECTIVE: seen in am . has pain in L hip and R knee. had fever x 2 days at home. reprots diarrhea x 4 days , saw blood at some point . diarrhea stopped. no abd pain. has R s ided chest discomfort. he sees people who ask him tp throw himself in front of [employer] . feels severely sad and cont to have SI . stopped taking Pitkin and ilanzapine as he got better. he admits to taking seroquel but does not remember the dose or the place he picks it up frm OBJECTIVE: NAD, calm , flat affect, slow speech , MMM, + eye contact. EOMI, no nystgagmus CV : RRR, no MRG Lungs: CTAB Abd: soft, NT, ND, NL BS. Ext : No edema or erythema on upper or lower extremities. pain in L groin , and in R knee, not able to flex R knee upon request Abd : soft, NT, Nd , NL BS Skin : a well healed irregular scar in L chest wall around L nipple ASSESSMENT AND PLAN: 44 y/o man with h/o bioplar and depression and several suicidal attempts , withdrawal seizures, ETOH abuse, and non compliance with psych meds who presented with SI . 1- SI , severe depression with psychotic features, and Bipolar Do - appreciate Psych eval and Recs - Start respirdal and Pitkin - cont 1: 1 - appropriate for Inpt psych admission 2- SIRS criteria met: Leukocytosis , and fever . no source of infection . this could be due to ETOH withdrawal. did not receive Abx in Er and WBC dropped to 11 k. monitor if diarrhea recur , can send stool studies follow blood cx 3- Reported hematochezia . not sure of accuracy. will obtain FOBT , monitor for any signs of bleeding. Hb is normal 4- s/p Fall : - obtain L hip CT and R knee xray 5- ETOH withdrawal : - cont librium - cont thiamine and Folic - no signs of Wernicke's -DVT PX : add lovenox Cont 1:1. Can NOT leave AMA
[2020-05-03] MEDS: ACETAMINOPHEN 325 MG TABLET (FP) PO PRN (17:24)
[2020-05-03] MEDS: ENOXAPARIN NA (PORCINE) 40 MG/0.4 ML DISP.SYRIN SQ SCH (17:26)
[2020-05-03] MEDS ORDERED: PT OWN MED DRAWER 7, Y5N ONE (21:36)
[2020-05-03] MEDS: LITHIUM CARBONATE 300 MG CAPSULE (FP) PO SCH (21:49)
[2020-05-03] MEDS: risperiDONE 1 MG TABLET PO SCH (21:49)
[2020-05-04] MEDS ORDERED: chlordiazePOXIDE HCL 10 MG CAPSULE PO PRN
[2020-05-04] MEDS ORDERED: chlordiazePOXIDE HCL 10 MG CAPSULE PO SCH (05:00)
[2020-05-04] MEDS: chlordiazePOXIDE HCL 25 MG CAPSULE PO SCH ×4 (05:27→22:30)
[2020-05-04 07:41] LABS: HEMOGLOBIN 13.8 GM/dL (11.7-16.9); MCH 29.7 pg (25.7-33.7); MCHC 33.7 g/dl (32.0-35.9); MEAN PLT VOLUME 9.2 fl (7.5-11.1); PLATELET COUNT 218 K/MM3 (134-434); RBC 4.65 M/mm3 (4.00-5.60); RDW 13.7 % (11.9-15.9)
[2020-05-04 07:57] LABS: BLOOD UREA NITROGEN 16.8 mg/dL (7-18); CALCIUM 8.5 mg/dL (8.5-10.1); MAGNESIUM 2.2 mg/dL (1.8-2.4); PHOSPHOROUS 2.7 mg/dL (2.5-4.9)
[2020-05-04] MEDS: ENOXAPARIN NA (PORCINE) 40 MG/0.4 ML DISP.SYRIN SQ SCH (09:08)
[2020-05-04] MEDS: risperiDONE 1 MG TABLET PO SCH ×2 (09:09→22:30)
[2020-05-04] MEDS: LITHIUM CARBONATE 300 MG CAPSULE (FP) PO SCH ×2 (09:09→22:29)
[2020-05-04] MEDS: THIAMINE HCL 100 MG TABLET (FP) PO SCH (09:09)
[2020-05-04] MEDS: FOLIC ACID 1 MG TABLET (FP) PO SCH (09:10)
[2020-05-04] MEDS ORDERED: LITHIUM CARBONATE 300 MG CAPSULE (FP) PO SCH (10:00)
--- NOTE | 2020-05-04 15:22 | PN ---
Progress Note (short form) - Note Progress Note: Subjective: seen at around 10:30 AM no fever or chills. pain in legs. he complains of shakes ( although non visible ) . cont to have SI , and cont to be depressed Objective: Vital Signs: Last Vital Signs Temp Pulse Resp BP Pulse Ox 97.6 F 78 20 125/57 L 96 05/04/20 14:00 05/04/20 14:00 05/04/20 14:00 05/04/20 14:00 05/04/20 14:00 Laboratory Results - last 24 hr 05/02/20 05/04/20 05/04/20 23:00 07:00 07:00 WBC 7.0 RBC 4.65 Hgb 13.8 Hct 41.0 MCV 88.0 MCH 29.7 MCHC 33.7 RDW 13.7 Plt Count 218 MPV 9.2 Sodium 138 Potassium 4.0 Chloride 106 Carbon Dioxide 26 Anion Gap 6 L BUN 16.8 Creatinine 1.0 Est GFR (CKD-EPI)AfAm 104.88 Est GFR (CKD-EPI)NonAf 90.49 Random Glucose 97 Calcium 8.5 Phosphorus 2.7 Magnesium 2.2 COVID-19 (JAMIE) Not detected OBJECTIVE: NAD, calm , flat affect, MMM CV : RRR, no MRG Lungs: CTAB Abd: soft, ND, mild tenderness to palpationin suprapubic area ( did not urinate since last night ) NL BS. Ext : No edema or erythema on upper or lower extremities. ASSESSMENT AND PLAN: 44 y/o man with h/o bioplar and depression and several suicidal attempts , withdrawal seizures, ETOH abuse, and non compliance with psych meds who presented with SI . 1- SI , severe depression with psychotic features, and Bipolar Do - CONT respirdal and [place] - cont 1: 1 - complete 2 PC form . 2- SIRS criteria met: Leukocytosis resolved with no Abx. fever resolved . mon itor off Abx . - follow blood cx 3- Reported hematochezia . no BM here. Hb stable . f/u with GI at dc 4- s/p Fall : - No fx on pelvis CT and R knee xray 5- ETOH withdrawal : - cont librium - cont thiamine and Folic -DVT PX: lovenox Cont 1:1. Can NOT leave AMA Visit type - Emergency Visit Emergency Visit: Yes ED Registration Date: 05/03/20 Care time: The patient presented to the Emergency Department on the above date and was hospitalized for further evaluation of their emergent condition. - New Patient This patient is new to me today: No - Critical Care Critical Care patient: No
--- NOTE | 2020-05-04 21:41 | EKG ---
Test Reason : Blood Pressure : / mmHG Vent. Rate : 104 BPM Atrial Rate : 104 BPM P-R Int : 148 ms QRS Dur : 082 ms QT Int : 330 ms P-R-T Axes : 022 061 -45 degrees QTc Int : 433 ms SINUS TACHYCARDIA T WAVE ABNORMALITY, CONSIDER INFEROLATERAL ISCHEMIA ABNORMAL ECG WHEN COMPARED WITH ECG OF 17-APR-2020 13:12, NO SIGNIFICANT CHANGE WAS FOUND Confirmed by GALE NUNN MD ([id number]) on 05/04/2020 9:40:54 PM Referred By: MD FOSTER Confirmed By:GALE NUNN MD
[2020-05-05] MEDS ORDERED: chlordiazePOXIDE HCL 10 MG CAPSULE PO PRN
[2020-05-05] MEDS ORDERED: chlordiazePOXIDE HCL 10 MG CAPSULE PO SCH (05:00)
[2020-05-05] MEDS: chlordiazePOXIDE HCL 10 MG CAPSULE PO SCH ×4 (05:39→22:13)
[2020-05-05] MEDS: risperiDONE 1 MG TABLET PO SCH ×2 (09:41→22:13)
[2020-05-05] MEDS: FOLIC ACID 1 MG TABLET (FP) PO SCH (09:41)
[2020-05-05] MEDS: LITHIUM CARBONATE 300 MG CAPSULE (FP) PO SCH ×2 (09:41→22:35)
[2020-05-05] MEDS: ENOXAPARIN NA (PORCINE) 40 MG/0.4 ML DISP.SYRIN SQ SCH (09:41)
[2020-05-05] MEDS: THIAMINE HCL 100 MG TABLET (FP) PO SCH (10:54)
[2020-05-05 11:12] LABS: BASO % 0.8 % (0-2.0); EOS % 4.6 % (0-4.5); HEMATOCRIT 42.1 % (35.4-49); HEMOGLOBIN 14.2 GM/dL (11.7-16.9); LYMPH % 11.6 % (8-40); MCH 29.6 pg (25.7-33.7); MCHC 33.7 g/dl (32.0-35.9); MEAN PLT VOLUME 9.5 fl (7.5-11.1); MONO % 8.4 % (3.8-10.2); NEUT % 74.6 % (42.8-82.8); PLATELET COUNT 233 K/MM3 (134-434); RBC 4.78 M/mm3 (4.00-5.60); RDW 13.8 % (11.9-15.9); WHITE BLOOD COUNT 7.9 K/mm3 (4.0-10.0)
--- NOTE | 2020-05-05 11:24 | PN ---
Progress Note, Physician Chief Complaint: Called to see Mr Dion bush am on 8th floor of [facility]. Client is maintained on Constant Observation for acute suicidal and Homicidal ideation. Client verbalized that " i have no will to live". Client has a plan to sit on tracks or jump in front of oncoming amtrack Train. Client is re started on Risperidal and [place]. - Current Medication List Current Medications: Active Medications Acetaminophen (Tylenol -) 650 mg PO Q6H PRN PRN Reason: PAIN LEVEL 4 - 6 Last Admin: 05/03/20 17:24 Dose: 650 mg Documented by: Chlordiazepoxide HCl (Librium -) 10 mg PO Q6V-AFR [facility], [facility] Stop: 05/05/20 23:01 Last Admin: 05/05/20 10:55 Dose: 10 mg Documented by: Chlordiazepoxide HCl (Librium -) 10 mg PO Q12H [facility], [facility] Stop: 05/06/20 17:01 Chlordiazepoxide HCl (Librium -) 10 mg PO Q4H PRN PRN Reason: WITHDRAWAL(CONT SUBST) Stop: 05/06/20 00:00 Chlordiazepoxide HCl (Librium -) 10 mg PO ONCE@0500 ONE Stop: 05/07/20 05:01 Enoxaparin Sodium (Lovenox -) 40 mg SQ DAILY FOR[facility], [facility] Last Admin: 05/05/20 09:41 Dose: 40 mg Documented by: Folic Acid (Folic Acid -) 1 mg PO DAILY [facility], [facility] Last Admin: 05/05/20 09:41 Dose: 1 mg Documented by: [place] Carbonate (Eskalith -) 300 mg PO BID [facility], [facility] Last Admin: 05/05/20 09:41 Dose: 300 mg Documented by: Risperidone (Risperdal -) 1 mg PO BID [facility], [facility] Last Admin: 05/05/20 09:41 Dose: 1 mg Documented by: Thiamine HCl (Vitamin B1 -) 100 mg PO DAILY [facility] Last Admin: 05/05/20 10:54 Dose: 100 mg Documented by: - Objective Vital Signs: Vital Signs Temperature 97.9 F 05/05/20 06:00 Pulse Rate 60 05/05/20 06:00 Respiratory Rate 20 05/05/20 09:00 Blood Pressure 102/62 05/05/20 06:00 O2 Sat by Pulse Oximetry (%) 96 05/05/20 09:00 Problem List - Problems (1) Bipolar disorder Code(s): F31.9 - BIPOLAR DISORDER, UNSPECIFIED Qualifiers: Active/Remission status: currently active Current bipolar episode type: depressed Psychotic features: with psychotic features (2) Suicidal ideations Code(s): R45.851 - SUICIDAL IDEATIONS Assessment/Plan Renew order for Constant Observation for safety on inpatient unit. E[place]lon level in am prior to taking am dose. On Librium taper currently. Signed InvoluntARY 04.27 MENTAL hYGIENE LAW FORM, PLACED IN PATIENT FILRE. Spoke with assistant product manager Erik nam and RN on Unit.
[2020-05-05 11:29] LABS: BLOOD UREA NITROGEN 15.7 mg/dL (7-18); CALCIUM 8.5 mg/dL (8.5-10.1); CREATININE 0.9 mg/dL (0.55-1.3)
--- NOTE | 2020-05-05 14:11 | PN ---
Physical Exam: SUBJECTIVE: Patient seen and examined this morning, expressing active suicidal and homocidal ideation. Displayed pleasant demeanor, was not aggressive or overly anxious. OBJECTIVE: Vital Signs Period Temp Pulse Resp BP Sys/Yates Pulse Ox Last 24 Hr 97.8 F-97.9 F 60-67 20-20 102-123/53-62 96-97 GENERAL: The patient is awake, alert, and fully oriented HEAD: Normal with no signs of trauma. EYES: PERRL, extraocular movements intact, sclera anicteric, conjunctiva clear. No ptosis. NECK: Trachea midline, full range of motion, supple. LUNGS: Breath sounds equal, clear to auscultation bilaterally, no wheezes, no crackles, no accessory muscle use. HEART: Regular rate and rhythm, S1, S2 without murmur, rub or gallop. ABDOMEN: Soft, nontender, nondistended, normoactive bowel sounds EXTREMITIES: 2+ pulses, warm, well-perfused, no edema. NEUROLOGICAL: Normal speech, gait not observed. PSYCH: Sad affect, depressed mood SKIN: Warm, dry, normal turgor, scars noted on R femur 2/2 surgery, L wrist 2/2 cutting Laboratory Results - last 24 hr CBC, BMP 05/05/20 10:00 05/05/20 10:00 Active Medications Generic Name Dose Route Start Last Admin Trade Name Freq PRN Reason Stop Dose Admin Acetaminophen 650 mg 05/03/20 15:39 05/03/20 17:24 Tylenol - PO 650 mg Q6H PRN Administration PAIN LEVEL 4 - 6 Chlordiazepoxide HCl 10 mg 05/05/20 05:00 05/05/20 10:55 Librium - PO 05/05/20 23:01 10 mg [id number] AIXA Administration Chlordiazepoxide HCl 10 mg 05/06/20 05:00 Librium - PO 05/06/20 17:01 Q12H AIXA Chlordiazepoxide HCl 10 mg 05/05/20 00:00 Librium - PO 05/06/20 00:00 Q4H PRN WITHDRAWAL(CONT SUBST) Chlordiazepoxide HCl 10 mg 05/07/20 05:00 Librium - PO 05/07/20 05:01 ONCE@0500 ONE Enoxaparin Sodium 40 mg 05/03/20 16:30 05/05/20 09:41 Lovenox - SQ 40 mg DAILY AIXA Administration Folic Acid 1 mg 05/03/20 10:00 05/05/20 09:41 Folic Acid - PO 1 mg DAILY AIXA Administration [place] Carbonate 300 mg 05/03/20 22:00 05/05/20 09:41 Eskalith - PO 300 mg BID AIXA Administration Risperidone 1 mg 05/03/20 22:00 05/05/20 09:41 Risperdal - PO 1 mg BID AIXA Administration Thiamine HCl 100 mg 05/03/20 10:00 05/05/20 10:54 Vitamin B1 - PO 100 mg DAILY AIXA Administration ASSESSMENT/PLAN: This is a 44 y/o man with a significant medical history of Bipolar Disorder, Schizoaffective Disorder, Alcohol Abuse, recent admission to [facility] for Detox- 04/17-04/20 presenting for left hip pain 2/2 fall. BIPOLAR DISORDER w/SEVERE DEPRESSION w/ SUICIDAL IDEATION & PSYCHOTIC FEATURES - c/w [place] 300mg BID - c/w Risperidone 1mg BID - c/w 1:1 2/2 suicidal/homocidal ideation - 2 PC form signed and completed in chart - Social Work (Evelyne) working to transfer to Inpatient Psych RESOLVED: SIRS -Vital Signs stable -No WBC -Blood Cx currently negative -Urine Cx currently negative REPORTED EPISODE OF HEMATOCHEZIA -No reported bowel movements -Start Colace 100mg BID for constipation -FU GI on DC Hx of RECENT FALL r/o MECHANICAL vs DRUG INDUCED -CT Head/Spine/Pelvis: No acute fracture -XR Knee: No acute fracture -Gait not tested 2/2 affect/somnolence -FU PT if possible on 1:1 ALCOHOL WITHDRAWAL - Remains anxious, tremulous - c/w Librium protocol - Day 3 - c/w Thiamine 100mg Qdaily - c/w Folic Acid 1mg qDaily PPx -DVT: Lovenox 40mg DISPO -continue to monitor or 1:1, w/ goal of transfer to inpatient psych. Patient may NOT leave AMA. Visit type - Emergency Visit Emergency Visit: No - New Patient This patient is new to me today: Yes Date on this admission: 05/05/20 - Critical Care Critical Care patient: No - Discharge Referral Referred to [facility] Med P.C.: No ATTENDING PHYSICIAN STATEMENT I saw and evaluated the patient. I reviewed the resident's note and discussed the case with the resident. I agree with the resident's findings and plan as documented. SUBJECTIVE: OBJECTIVE: ASSESSMENT AND PLAN:
--- NOTE | 2020-05-05 15:40 | PN ---
Teaching Attending Note Name of Resident: Hasmukh Brenner ATTENDING PHYSICIAN STATEMENT I saw and evaluated the patient. I reviewed the resident's note and discussed the case with the resident. I agree with the resident's findings and plan as documented. SUBJECTIVE: Feels " rough" . has SI . painin Legs . no diarhea, no hematochezia OBJECTIVE: NAD, calm , flat affect, MMM CV : RRR, no MRG Lungs: CTAB Abd: soft, ND, NT, ND , NL BS Ext : No edema or erythema on upper or lower extremities. ASSESSMENT AND PLAN: 44 y/o man with h/o bioplar and depression and several suicidal attempts , withdrawal seizures, ETOH abuse, and non compliance with psych meds who presented with SI . 1- SI , severe depression with psychotic features, and Bipolar Do - CONT respirdal and [place] - lithium level in AM - cont 1: 1 2- leukocytosis , resolved. cxs neg to date 3- Reported hematochezia . no BM here. Hb stable . f/u with GI at dc 4- s/p Fall : - No fx on pelvis CT and R knee xray 5- ETOH withdrawal : - cont librium . last dose tomorrow at 5 pm - cont thiamine and Folic -DVT PX: lovenox Cont 1:1. Can NOT leave AMA Needs to complete his detox. last dose librium 5 tomorrow . then can be transferred to psych .
[2020-05-05] MEDS ORDERED: PT OWN MED DRAWER 7, Y5N ONE (21:14)
[2020-05-05] MEDS: DOCUSATE SODIUM 100 MG CAPSULE (FP) PO SCH (22:13)
[2020-05-06] MEDS ORDERED: chlordiazePOXIDE HCL 10 MG CAPSULE PO ONE (05:00)
[2020-05-06] MEDS ORDERED: chlordiazePOXIDE HCL 10 MG CAPSULE PO SCH (05:00)
[2020-05-06] MEDS: chlordiazePOXIDE HCL 10 MG CAPSULE PO SCH ×2 (05:30→17:08)
[2020-05-06] MEDS: ACETAMINOPHEN 325 MG TABLET (FP) PO PRN (06:36)
[2020-05-06 08:47] LABS: BASO % 0.8 % (0-2.0); HEMATOCRIT 40.6 % (35.4-49); HEMOGLOBIN 13.8 GM/dL (11.7-16.9); LYMPH % 15.7 % (8-40); MCH 29.8 pg (25.7-33.7); MCHC 34.1 g/dl (32.0-35.9); MEAN CELL VOLUME 87.3 fl (80-96); MEAN PLT VOLUME 9.7 fl (7.5-11.1); MONO % 8.2 % (3.8-10.2); NEUT % 70.3 % (42.8-82.8); PLATELET COUNT 234 K/MM3 (134-434); RBC 4.65 M/mm3 (4.00-5.60); RDW 13.5 % (11.9-15.9); WHITE BLOOD COUNT 8.3 K/mm3 (4.0-10.0)
[2020-05-06 08:50] LABS: BLOOD UREA NITROGEN 16.3 mg/dL (7-18); CALCIUM 8.2 mg/dL (8.5-10.1); POTASSIUM 4.1 mmol/L (3.5-5.1)
[2020-05-06] MEDS ORDERED: PT OWN MED DRAWER 7, Y5N ONE ×2 (09:05→21:35)
[2020-05-06] MEDS: risperiDONE 1 MG TABLET PO SCH ×2 (09:07→21:36)
[2020-05-06] MEDS: DOCUSATE SODIUM 100 MG CAPSULE (FP) PO SCH ×2 (09:07→21:36)
[2020-05-06] MEDS: LITHIUM CARBONATE 300 MG CAPSULE (FP) PO SCH ×2 (09:08→21:36)
[2020-05-06] MEDS: FOLIC ACID 1 MG TABLET (FP) PO SCH (09:08)
[2020-05-06] MEDS: THIAMINE HCL 100 MG TABLET (FP) PO SCH (09:08)
[2020-05-06] MEDS: ENOXAPARIN NA (PORCINE) 40 MG/0.4 ML DISP.SYRIN SQ SCH (09:09)
--- NOTE | 2020-05-06 10:02 | PN ---
Teaching Attending Note Name of Resident: Hasmukh Brenner ATTENDING PHYSICIAN STATEMENT I saw and evaluated the patient. I reviewed the resident's note and discussed the case with the resident. I agree with the resident's findings and plan as documented. SUBJECTIVE: Patient has no new complains. OBJECTIVE: Vital Signs Temperature 97.9 F 05/06/20 06:53 Pulse Rate 59 L 05/06/20 06:53 Respiratory Rate 20 05/06/20 06:53 Blood Pressure 120/65 05/06/20 06:53 O2 Sat by Pulse Oximetry (%) 96 05/06/20 06:53 PE; per resident's note CBCD WBC 8.3 K/mm3 (4.0-10.0) 05/06/20 07:05 RBC 4.65 M/mm3 (4.00-5.60) 05/06/20 07:05 Hgb 13.8 GM/dL (11.7-16.9) 05/06/20 07:05 Hct 40.6 % (35.4-49) 05/06/20 07:05 MCV 87.3 fl (80-96) 05/06/20 07:05 MCHC 34.1 g/dl (32.0-35.9) 05/06/20 07:05 RDW 13.5 % (11.9-15.9) 05/06/20 07:05 Plt Count 234 K/MM3 (134-434) 05/06/20 07:05 MPV 9.7 fl (7.5-11.1) 05/06/20 07:05 CMP Sodium 139 mmol/L (136-145) 05/06/20 07:05 Potassium 4.1 mmol/L (3.5-5.1) 05/06/20 07:05 Chloride 106 mmol/L (98-107) 05/06/20 07:05 Carbon Dioxide 27 mmol/L (21-32) 05/06/20 07:05 Anion Gap 6 MMOL/L (8-16) L 05/06/20 07:05 BUN 16.3 mg/dL (7-18) 05/06/20 07:05 Creatinine 1.0 mg/dL (0.55-1.3) 05/06/20 07:05 Random Glucose 103 mg/dL (74-106) 05/06/20 07:05 Calcium 8.2 mg/dL (8.5-10.1) L 05/06/20 07:05 Total Bilirubin 1.0 mg/dL (0.2-1) 05/03/20 06:59 AST 18 U/L (15-37) 05/03/20 06:59 ALT 39 U/L (13-61) 05/03/20 06:59 Alkaline Phosphatase 101 U/L (45-117) 05/03/20 06:59 Total Protein 7.1 g/dl (6.4-8.2) 05/03/20 06:59 Albumin 3.5 g/dl (3.4-5.0) 05/03/20 06:59 CARDIAC ENZYMES Creatine Kinase 235 U/L (26-308) 05/02/20 23:00 Troponin I < 0.03 ng/ml (0.00-0.05) 05/02/20 23:00 Current Medications Generic Name Dose Route Start Last Admin Trade Name Freq PRN Reason Stop Dose Admin Acetaminophen 650 mg 05/03/20 15:39 05/06/20 06:36 Tylenol - PO 650 mg Q6H PRN Administration PAIN LEVEL 4 - 6 Chlordiazepoxide HCl 10 mg 05/07/20 05:00 Librium - PO 05/07/20 05:01 ONCE@0500 ONE Chlordiazepoxide HCl 10 mg 05/06/20 05:15 05/06/20 05:30 Librium - PO 05/06/20 17:16 10 mg Q12H AIXA Administration Docusate Sodium 100 mg 05/05/20 22:00 05/06/20 09:07 Colace - PO 100 mg BID AIXA Administration Enoxaparin Sodium 40 mg 05/03/20 16:30 05/06/20 09:09 Lovenox - SQ 40 mg DAILY AIXA Administration Folic Acid 1 mg 05/03/20 10:00 05/06/20 09:08 Folic Acid - PO 1 mg DAILY AIXA Administration [place] Carbonate 300 mg 05/03/20 22:00 05/06/20 09:08 Eskalith - PO 300 mg BID AIXA Administration Risperidone 1 mg 05/03/20 22:00 05/06/20 09:07 Risperdal - PO 1 mg BID AIXA Administration Thiamine HCl 100 mg 05/03/20 10:00 05/06/20 09:08 Vitamin B1 - PO 100 mg DAILY AIXA Administration Home Medications Medication Instructions Recorded NK [No Known Home Medication] 04/17/20 Microbiology 05/02/20 22:50 Blood - Peripheral Venous Blood Culture - Preliminary NO GROWTH OBTAINED AFTER 72 HOURS, INCUBATION TO CONTINUE FOR 2 DAYS. 05/02/20 22:45 Blood - Peripheral Venous Blood Culture - Preliminary NO GROWTH OBTAINED AFTER 72 HOURS, INCUBATION TO CONTINUE FOR 2 DAYS. 05/02/20 22:50 Urine - Urine Clean Catch Urine Culture - Final NO GROWTH OBTAINED ASSESSMENT AND PLAN: Patient is a 44yom with Pmhx of bioplar and depression and several suicidal attempts , withdrawal seizures, ETOH abuse, and non compliance with psych meds who presented with Suicidal ideation. . # Acute Suicidal ideation # severe depression with psychotic features # Bipolar Do: on respirdal and [place] continue , check lithium level , cont 1: 1 # leukocytosis , resolved. cxs neg to date # Reported hematochezia . H/H stable , outpatient GI F/u # s/p Fall : No fx on pelvis CT and R knee xray # ETOH withdrawal : cont librium . last dose tomorrow at 5 pm, cont thiamine and Folic DVT PX: lovenox Cont 1:1. Can NOT leave AMA Needs to complete his detox. last dose librium today, then can be transferred to psych . waiting for bed in psych facility
--- NOTE | 2020-05-06 13:56 | PN ---
Physical Exam: SUBJECTIVE: Patient seen and examined, continues to endorse homicidal and suicidal ideation. Endorses hearing internal auditory stimuli. Denies feelings of aggression towards medical team. Pleasant in demeanor and non-threatening. OBJECTIVE: Vital Signs Period Temp Pulse Resp BP Sys/Yates Pulse Ox Last 24 Hr 97.9 F-98.6 F 59-72 20-20 104-120/59-66 96-98 GENERAL: The patient is awake, alert, and fully oriented HEAD: Normal with no signs of trauma. EYES: PERRL, extraocular movements intact, sclera anicteric, conjunctiva clear. No ptosis. NECK: Trachea midline, full range of motion, supple. LUNGS: Breath sounds equal, clear to auscultation bilaterally, no wheezes, no crackles, no accessory muscle use. HEART: Regular rate and rhythm, S1, S2 without murmur, rub or gallop. ABDOMEN: Soft, nontender, nondistended, normoactive bowel sounds EXTREMITIES: 2+ pulses, warm, well-perfused, no edema. NEUROLOGICAL: Normal speech, gait not observed. PSYCH: Sad affect, depressed mood SKIN: Warm, dry, normal turgor, scars noted on R femur 2/2 surgery, L wrist 2/2 cutting Laboratory Results - last 24 hr CBC, BMP 05/06/20 07:05 05/06/20 07:05 Active Medications Generic Name Dose Route Start Last Admin Trade Name Freq PRN Reason Stop Dose Admin Acetaminophen 650 mg 05/03/20 15:39 05/06/20 06:36 Tylenol - PO 650 mg Q6H PRN Administration PAIN LEVEL 4 - 6 Chlordiazepoxide HCl 10 mg 05/07/20 05:00 Librium - PO 05/07/20 05:01 ONCE@0500 ONE Chlordiazepoxide HCl 10 mg 05/06/20 05:15 05/06/20 05:30 Librium - PO 05/06/20 17:16 10 mg Q12H AIXA Administration Docusate Sodium 100 mg 05/05/20 22:00 05/06/20 09:07 Colace - PO 100 mg BID AIXA Administration Enoxaparin Sodium 40 mg 05/03/20 16:30 05/06/20 09:09 Lovenox - SQ 40 mg DAILY AIXA Administration Folic Acid 1 mg 05/03/20 10:00 05/06/20 09:08 Folic Acid - PO 1 mg DAILY AIXA Administration [place] Carbonate 300 mg 05/03/20 22:00 05/06/20 09:08 Eskalith - PO 300 mg BID AIXA Administration Risperidone 1 mg 05/03/20 22:00 05/06/20 09:07 Risperdal - PO 1 mg BID AIXA Administration Thiamine HCl 100 mg 05/03/20 10:00 05/06/20 09:08 Vitamin B1 - PO 100 mg DAILY AIXA Administration ASSESSMENT/PLAN: 44 yo M with PMHx of Bipolar Disorder, Schizoaffective Disorder, Alcohol Abuse, recent admission to [facility] for Detox- 04/17-04/20 presenting for left hip pain 2/2 fall. BIPOLAR DISORDER w/SEVERE DEPRESSION w/ SUICIDAL IDEATION & PSYCHOTIC FEATURES - c/w [place] 300mg BID - c/w Risperidone 1mg BID - c/w 1:1 2/2 suicidal/homicidal ideation - 2 PC form signed and completed in chart - Social Work (Evelyne) working to transfer to Inpatient Psych RESOLVED: SIRS -Vital Signs stable -No WBC -Blood Cx currently negative -Urine Cx currently negative REPORTED EPISODE OF HEMATOCHEZIA -BM reported overnight, denied hematochezia -c/w Colace 100mg BID for constipation -FU GI on DC Hx of RECENT FALL r/o MECHANICAL vs DRUG INDUCED -CT Head/Spine/Pelvis: No acute fracture -XR Knee: No acute fracture -PT: Full weight bearing w/ wide based gait. c/w PT. ALCOHOL WITHDRAWAL - Remains anxious, tremulous - c/w Librium protocol - Day 4 - c/w Thiamine 100mg Qdaily - c/w Folic Acid 1mg qDaily PPx -DVT: Lovenox 40mg DISPO -continue to monitor or 1:1, w/ goal of transfer to inpatient psych. Patient may NOT leave AMA. Visit type - Emergency Visit Emergency Visit: No - New Patient This patient is new to me today: No - Critical Care Critical Care patient: No - Discharge Referral Referred to [facility] Med P.C.: No ATTENDING PHYSICIAN STATEMENT I saw and evaluated the patient. I reviewed the resident's note and discussed the case with the resident. I agree with the resident's findings and plan as documented. SUBJECTIVE: OBJECTIVE: ASSESSMENT AND PLAN:
[2020-05-07] MEDS ORDERED: chlordiazePOXIDE HCL 10 MG CAPSULE PO ONE (05:00)
[2020-05-07 08:22] LABS: BLOOD UREA NITROGEN 14.9 mg/dL (7-18); CALCIUM 8.7 mg/dL (8.5-10.1); CREATININE 0.9 mg/dL (0.55-1.3); POTASSIUM 4.2 mmol/L (3.5-5.1)
[2020-05-07 08:33] LABS: BASO % 0.9 % (0-2.0); EOS % 5.3 % (0-4.5); LYMPH % 16.2 % (8-40); MCH 29.2 pg (25.7-33.7); MCHC 33.4 g/dl (32.0-35.9); MEAN CELL VOLUME 87.3 fl (80-96); MEAN PLT VOLUME 9.3 fl (7.5-11.1); NEUT % 69.6 % (42.8-82.8); PLATELET COUNT 248 K/MM3 (134-434); RBC 4.81 M/mm3 (4.00-5.60); RDW 13.5 % (11.9-15.9); WHITE BLOOD COUNT 8.3 K/mm3 (4.0-10.0)
[2020-05-07] MEDS: THIAMINE HCL 100 MG TABLET (FP) PO SCH (09:12)
[2020-05-07] MEDS: risperiDONE 1 MG TABLET PO SCH ×2 (09:12→22:16)
[2020-05-07] MEDS: DOCUSATE SODIUM 100 MG CAPSULE (FP) PO SCH ×2 (09:12→22:16)
[2020-05-07] MEDS: FOLIC ACID 1 MG TABLET (FP) PO SCH (09:12)
[2020-05-07] MEDS ORDERED: PT OWN MED DRAWER 7, Y5N ONE ×3 (09:16→21:37)
[2020-05-07] MEDS: ENOXAPARIN NA (PORCINE) 40 MG/0.4 ML DISP.SYRIN SQ SCH (09:18)
--- NOTE | 2020-05-07 14:19 | PN ---
Physical Exam: SUBJECTIVE: Patient seen and examined this morning, no longer endorsing homicidal or suicidal ideation. No longer endorsing auditory hallucinations. Ptn states he feels better. OBJECTIVE: Vital Signs Period Temp Pulse Resp BP Sys/Yates Pulse Ox Last 24 Hr 97.6 F-98.7 F 58-77 20-20 110-124/55-61 96-97 GENERAL: The patient is awake, alert, and fully oriented HEAD: Normal with no signs of trauma. EYES: PERRL, extraocular movements intact, sclera anicteric, conjunctiva clear. No ptosis. NECK: Trachea midline, full range of motion, supple. LUNGS: Breath sounds equal, clear to auscultation bilaterally, no wheezes, no crackles, no accessory muscle use. HEART: Regular rate and rhythm, S1, S2 without murmur, rub or gallop. ABDOMEN: Soft, nontender, nondistended, normoactive bowel sounds EXTREMITIES: 2+ pulses, warm, well-perfused, no edema. NEUROLOGICAL: Normal speech, gait not observed. PSYCH: Sad affect, depressed mood SKIN: Warm, dry, normal turgor, scars noted on R femur 2/2 surgery, L wrist 2/2 cutting Laboratory Results - last 24 hr CBC, BMP 05/07/20 06:29 05/07/20 06:29 Active Medications Generic Name Dose Route Start Last Admin Trade Name Ernestoq PRN Reason Stop Dose Admin Acetaminophen 650 mg 05/03/20 15:39 05/06/20 06:36 Tylenol - PO 650 mg Q6H PRN Administration PAIN LEVEL 4 - 6 Docusate Sodium 100 mg 05/05/20 22:00 05/07/20 09:12 Colace - PO 100 mg BID AIXA Administration Enoxaparin Sodium 40 mg 05/03/20 16:30 05/07/20 09:18 Lovenox - SQ 40 mg DAILY AIXA Administration Folic Acid 1 mg 05/03/20 10:00 05/07/20 09:12 Folic Acid - PO 1 mg DAILY AIXA Administration [place] Carbonate 300 mg 05/03/20 22:00 05/06/20 21:36 Eskalith - PO 300 mg BID AIXA Administration Risperidone 1 mg 05/03/20 22:00 05/07/20 09:12 Risperdal - PO 1 mg BID AIXA Administration Thiamine HCl 100 mg 05/03/20 10:00 05/07/20 09:12 Vitamin B1 - PO 100 mg DAILY AIXA Administration ASSESSMENT/PLAN: 44 yo M with PMHx of Bipolar Disorder, Schizoaffective Disorder, Alcohol Abuse, recent admission to [facility] for Detox- 04/17-04/20 presenting for left hip pain 2/2 fall. BIPOLAR DISORDER w/SEVERE DEPRESSION w/ SUICIDAL IDEATION & PSYCHOTIC FEATURES - Ptn denied HI/SI or hallucinations today - c/w [place] 300mg BID - c/w Risperidone 1mg BID - c/w 1:1 2/2 suicidal/homicidal ideation - 2 PC form signed and completed in chart - Social Work (Evelyne) working to transfer to Inpatient Psych REPORTED EPISODE OF HEMATOCHEZIA -c/w Colace 100mg BID for constipation -Add Miralax as needed -FU GI on DC Hx of RECENT FALL r/o MECHANICAL vs DRUG INDUCED -CT Head/Spine/Pelvis: No acute fracture -XR Knee: No acute fracture -PT: Full weight bearing w/ wide based gait. c/w PT. ALCOHOL WITHDRAWAL - Less anxious today - c/w Librium protocol - Day 5 - c/w Thiamine 100mg Qdaily - c/w Folic Acid 1mg qDaily PPx -DVT: Lovenox 40mg DISPO -continue to monitor or 1:1, w/ goal of transfer to inpatient psych. Patient may NOT leave AMA. Visit type - Emergency Visit Emergency Visit: No - New Patient This patient is new to me today: No - Critical Care Critical Care patient: No - Discharge Referral Referred to [facility] Med P.C.: No ATTENDING PHYSICIAN STATEMENT I saw and evaluated the patient. I reviewed the resident's note and discussed the case with the resident. I agree with the resident's findings and plan as documented. SUBJECTIVE: OBJECTIVE: ASSESSMENT AND PLAN:
[2020-05-07] MEDS: LITHIUM CARBONATE 300 MG CAPSULE (FP) PO SCH ×2 (17:26→22:16)
--- NOTE | 2020-05-07 18:51 | PN ---
Teaching Attending Note Name of Resident: Hasmukh Brenner ATTENDING PHYSICIAN STATEMENT I saw and evaluated the patient. I reviewed the resident's note and discussed the case with the resident. I agree with the resident's findings and plan as documented. SUBJECTIVE: Patient is comfortable with NAD OBJECTIVE: Vital Signs Temperature 91.6 F L 05/07/20 14:00 Pulse Rate 63 05/07/20 14:00 Respiratory Rate 20 05/07/20 14:00 Blood Pressure 118/53 L 05/07/20 14:00 O2 Sat by Pulse Oximetry (%) 96 05/07/20 14:00 PE;per resident's note CBCD WBC 8.3 K/mm3 (4.0-10.0) 05/07/20 06:29 RBC 4.81 M/mm3 (4.00-5.60) 05/07/20 06:29 Hgb 14.0 GM/dL (11.7-16.9) 05/07/20 06:29 Hct 42.0 % (35.4-49) 05/07/20 06:29 MCV 87.3 fl (80-96) 05/07/20 06:29 MCHC 33.4 g/dl (32.0-35.9) 05/07/20 06:29 RDW 13.5 % (11.9-15.9) 05/07/20 06:29 Plt Count 248 K/MM3 (134-434) 05/07/20 06:29 MPV 9.3 fl (7.5-11.1) 05/07/20 06:29 CMP Sodium 143 mmol/L (136-145) 05/07/20 06:29 Potassium 4.2 mmol/L (3.5-5.1) 05/07/20 06:29 Chloride 110 mmol/L (98-107) H 05/07/20 06:29 Carbon Dioxide 25 mmol/L (21-32) 05/07/20 06:29 Anion Gap 8 MMOL/L (8-16) 05/07/20 06:29 BUN 14.9 mg/dL (7-18) 05/07/20 06:29 Creatinine 0.9 mg/dL (0.55-1.3) 05/07/20 06:29 Random Glucose 85 mg/dL (74-106) 05/07/20 06:29 Calcium 8.7 mg/dL (8.5-10.1) 05/07/20 06:29 Total Bilirubin 1.0 mg/dL (0.2-1) 05/03/20 06:59 AST 18 U/L (15-37) 05/03/20 06:59 ALT 39 U/L (13-61) 05/03/20 06:59 Alkaline Phosphatase 101 U/L (45-117) 05/03/20 06:59 Total Protein 7.1 g/dl (6.4-8.2) 05/03/20 06:59 Albumin 3.5 g/dl (3.4-5.0) 05/03/20 06:59 CARDIAC ENZYMES Creatine Kinase 235 U/L (26-308) 05/02/20 23:00 Troponin I < 0.03 ng/ml (0.00-0.05) 05/02/20 23:00 Current Medications Generic Name Dose Route Start Last Admin Trade Name Freq PRN Reason Stop Dose Admin Acetaminophen 650 mg 05/03/20 15:39 05/06/20 06:36 Tylenol - PO 650 mg Q6H PRN Administration PAIN LEVEL 4 - 6 Docusate Sodium 100 mg 05/05/20 22:00 05/07/20 09:12 Colace - PO 100 mg BID AIXA Administration Enoxaparin Sodium 40 mg 05/03/20 16:30 05/07/20 09:18 Lovenox - SQ 40 mg DAILY AIXA Administration Folic Acid 1 mg 05/03/20 10:00 05/07/20 09:12 Folic Acid - PO 1 mg DAILY AIXA Administration [place] Carbonate 300 mg 05/03/20 22:00 05/07/20 17:26 Eskalith - PO 300 mg BID AIXA Administration Risperidone 1 mg 05/03/20 22:00 05/07/20 09:12 Risperdal - PO 1 mg BID AIXA Administration Thiamine HCl 100 mg 05/03/20 10:00 05/07/20 09:12 Vitamin B1 - PO 100 mg DAILY AIXA Administration Home Medications Medication Instructions Recorded NK [No Known Home Medication] 04/17/20 Microbiology 05/02/20 22:50 Blood - Peripheral Venous Blood Culture - Preliminary NO GROWTH OBTAINED AFTER 96 HOURS, INCUBATION TO CONTINUE FOR 1 DAYS. 05/02/20 22:45 Blood - Peripheral Venous Blood Culture - Preliminary NO GROWTH OBTAINED AFTER 96 HOURS, INCUBATION TO CONTINUE FOR 1 DAYS. 05/02/20 22:50 Urine - Urine Clean Catch Urine Culture - Final NO GROWTH OBTAINED ASSESSMENT AND PLAN: Patient is a 44yom with Pmhx of bioplar and depression and several suicidal attempts , withdrawal seizures, ETOH abuse, and non compliance with psych meds who presented with Suicidal ideation. . # Acute Suicidal ideation : Dr Crews is on the case , discussed with SW, trying to arrange a bed # severe depression with psychotic features # Bipolar Do: on respirdal and [place] continue , check lithium level , cont 1: 1 # leukocytosis , resolved. cxs neg to date # Reported hematochezia . H/H stable , outpatient GI F/u # s/p Fall : No fx on pelvis CT and R knee xray # ETOH withdrawal : cont librium . last dose tomorrow at 5 pm, cont thiamine and Folic DVT PX: lovenox Cont 1:1. Can NOT leave AMA completed detox. can be transferred transferred to psych . waiting for bed in psych facility
[2020-05-08 07:48] LABS: BASO % 0.6 % (0-2.0); EOS % 5.5 % (0-4.5); HEMATOCRIT 42.4 % (35.4-49); HEMOGLOBIN 14.6 GM/dL (11.7-16.9); LYMPH % 13.9 % (8-40); MCH 29.9 pg (25.7-33.7); MCHC 34.4 g/dl (32.0-35.9); MEAN PLT VOLUME 9.6 fl (7.5-11.1); MONO % 8.4 % (3.8-10.2); NEUT % 71.6 % (42.8-82.8); PLATELET COUNT 241 K/MM3 (134-434); RBC 4.87 M/mm3 (4.00-5.60); RDW 13.6 % (11.9-15.9)
[2020-05-08 08:24] LABS: BLOOD UREA NITROGEN 17.8 mg/dL (7-18); CALCIUM 8.6 mg/dL (8.5-10.1); CREATININE 0.9 mg/dL (0.55-1.3); MAGNESIUM 2.2 mg/dL (1.8-2.4); POTASSIUM 4.1 mmol/L (3.5-5.1)
[2020-05-08] MEDS ORDERED: PT OWN MED DRAWER 7, Y5N ONE ×2 (10:58→20:22)
[2020-05-08] MEDS: DOCUSATE SODIUM 100 MG CAPSULE (FP) PO SCH ×2 (11:02→21:08)
[2020-05-08] MEDS: THIAMINE HCL 100 MG TABLET (FP) PO SCH (11:02)
[2020-05-08] MEDS: risperiDONE 1 MG TABLET PO SCH ×2 (11:02→21:08)
[2020-05-08] MEDS: LITHIUM CARBONATE 300 MG CAPSULE (FP) PO SCH ×2 (11:03→21:08)
[2020-05-08] MEDS: ENOXAPARIN NA (PORCINE) 40 MG/0.4 ML DISP.SYRIN SQ SCH (11:04)
[2020-05-08] MEDS: FOLIC ACID 1 MG TABLET (FP) PO SCH (11:04)
--- NOTE | 2020-05-08 13:17 | PN ---
Physical Exam: SUBJECTIVE: Patient seen and examined today, continues to remain without SI/HI or hallucinations. States he is feeling better now and that 2019 was a difficult year for him since 3 people he was close with . OBJECTIVE: Vital Signs Period Temp Pulse Resp BP Sys/Yates Pulse Ox Last 24 Hr 91.6 F-98.5 F 58-63 18-20 100-118/52-60 95-97 GENERAL: The patient is awake, alert, and fully oriented HEAD: Normal with no signs of trauma. EYES: PERRL, extraocular movements intact, sclera anicteric, conjunctiva clear. No ptosis. NECK: Trachea midline, full range of motion, supple. LUNGS: Breath sounds equal, clear to auscultation bilaterally, no wheezes, no crackles, no accessory muscle use. HEART: Regular rate and rhythm, S1, S2 without murmur, rub or gallop. ABDOMEN: Soft, nontender, nondistended, normoactive bowel sounds EXTREMITIES: 2+ pulses, warm, well-perfused, no edema. NEUROLOGICAL: Normal speech, gait not observed. PSYCH: Sad affect, depressed mood SKIN: Warm, dry, normal turgor, scars noted on R femur 2/2 surgery, L wrist 2/2 cutting Laboratory Results - last 24 hr CBC, BMP 05/08/20 06:42 05/08/20 06:42 Active Medications Generic Name Dose Route Start Last Admin Trade Name Freq PRN Reason Stop Dose Admin Acetaminophen 650 mg 05/03/20 15:39 05/06/20 06:36 Tylenol - PO 650 mg Q6H PRN Administration PAIN LEVEL 4 - 6 Docusate Sodium 100 mg 05/05/20 22:00 05/08/20 11:02 Colace - PO 100 mg BID AIXA Administration Enoxaparin Sodium 40 mg 05/03/20 16:30 05/08/20 11:04 Lovenox - SQ 40 mg DAILY AIXA Administration Folic Acid 1 mg 05/03/20 10:00 05/08/20 11:04 Folic Acid - PO 1 mg DAILY AIXA Administration [place] Carbonate 300 mg 05/03/20 22:00 05/08/20 11:03 Eskalith - PO 300 mg BID AIXA Administration Risperidone 1 mg 05/03/20 22:00 05/08/20 11:02 Risperdal - PO 1 mg BID AIXA Administration Thiamine HCl 100 mg 05/03/20 10:00 05/08/20 11:02 Vitamin B1 - PO 100 mg DAILY AIXA Administration ASSESSMENT/PLAN: 44 yo M with PMHx of Bipolar Disorder, Schizoaffective Disorder, Alcohol Abuse, recent admission to [facility] for [facility]- 04/17-04/20 presenting for left hip pain 2/2 fall. BIPOLAR DISORDER w/SEVERE DEPRESSION w/ SUICIDAL IDEATION & PSYCHOTIC FEATURES - Ptn denied HI/SI or hallucinations today, states he is feeling happier - c/w [place] 300mg BID - c/w Risperidone 1mg BID - c/w 1:1 renewed daily - 2 PC form signed and completed in chart - Social Work (Evelyne) working to transfer to Inpatient Psych --> [facility] to [facility], spoke with a Gaby Moise REPORTED EPISODE OF HEMATOCHEZIA -c/w Colace 100mg BID for constipation -Add Miralax as needed -FU GI on DC Hx of RECENT FALL r/o MECHANICAL vs DRUG INDUCED -CT Head/Spine/Pelvis: No acute fracture -XR Knee: No acute fracture -PT: Full weight bearing w/ wide based gait. c/w PT. ALCOHOL WITHDRAWAL - Less anxious today - c/w Thiamine 100mg Qdaily - c/w Folic Acid 1mg qDaily PPx -DVT: Lovenox 40mg DISPO -continue to monitor or 1:1, w/ goal of transfer to inpatient psych. Patient may NOT leave AMA. Visit type - Emergency Visit Emergency Visit: No - New Patient This patient is new to me today: No - Critical Care Critical Care patient: No - Discharge Referral Referred to [facility] No ATTENDING PHYSICIAN STATEMENT I saw and evaluated the patient. I reviewed the resident's note and discussed the case with the resident. I agree with the resident's findings and plan as documented. SUBJECTIVE: OBJECTIVE: ASSESSMENT AND PLAN:
--- NOTE | 2020-05-08 19:01 | PN ---
Teaching Attending Note Name of Resident: Hasmukh Brenner ATTENDING PHYSICIAN STATEMENT I saw and evaluated the patient. I reviewed the resident's note and discussed the case with the resident. I agree with the resident's findings and plan as documented. SUBJECTIVE: Patient has no new complains. OBJECTIVE: Vital Signs Temperature 97.9 F 05/08/20 14:00 Pulse Rate 66 05/08/20 14:00 Respiratory Rate 20 05/08/20 14:00 Blood Pressure 112/62 05/08/20 14:00 O2 Sat by Pulse Oximetry (%) 96 05/08/20 14:00 PE; per resident's note CBCD WBC 9.0 K/mm3 (4.0-10.0) 05/08/20 06:42 RBC 4.87 M/mm3 (4.00-5.60) 05/08/20 06:42 Hgb 14.6 GM/dL (11.7-16.9) 05/08/20 06:42 Hct 42.4 % (35.4-49) 05/08/20 06:42 MCV 87.0 fl (80-96) 05/08/20 06:42 MCHC 34.4 g/dl (32.0-35.9) 05/08/20 06:42 RDW 13.6 % (11.9-15.9) 05/08/20 06:42 Plt Count 241 K/MM3 (134-434) 05/08/20 06:42 MPV 9.6 fl (7.5-11.1) 05/08/20 06:42 CMP Sodium 139 mmol/L (136-145) 05/08/20 06:42 Potassium 4.1 mmol/L (3.5-5.1) 05/08/20 06:42 Chloride 107 mmol/L (98-107) 05/08/20 06:42 Carbon Dioxide 26 mmol/L (21-32) 05/08/20 06:42 Anion Gap 6 MMOL/L (8-16) L 05/08/20 06:42 BUN 17.8 mg/dL (7-18) 05/08/20 06:42 Creatinine 0.9 mg/dL (0.55-1.3) 05/08/20 06:42 Random Glucose 83 mg/dL (74-106) 05/08/20 06:42 Calcium 8.6 mg/dL (8.5-10.1) 05/08/20 06:42 Total Bilirubin 1.0 mg/dL (0.2-1) 05/03/20 06:59 AST 18 U/L (15-37) 05/03/20 06:59 ALT 39 U/L (13-61) 05/03/20 06:59 Alkaline Phosphatase 101 U/L (45-117) 05/03/20 06:59 Total Protein 7.1 g/dl (6.4-8.2) 05/03/20 06:59 Albumin 3.5 g/dl (3.4-5.0) 05/03/20 06:59 CARDIAC ENZYMES Creatine Kinase 235 U/L (26-308) 05/02/20 23:00 Troponin I < 0.03 ng/ml (0.00-0.05) 05/02/20 23:00 Current Medications Generic Name Dose Route Start Last Admin Trade Name Freq PRN Reason Stop Dose Admin Acetaminophen 650 mg 05/03/20 15:39 05/06/20 06:36 Tylenol - PO 650 mg Q6H PRN Administration PAIN LEVEL 4 - 6 Docusate Sodium 100 mg 05/05/20 22:00 05/08/20 11:02 Colace - PO 100 mg BID AIXA Administration Enoxaparin Sodium 40 mg 05/03/20 16:30 05/08/20 11:04 Lovenox - SQ 40 mg DAILY AIXA Administration Folic Acid 1 mg 05/03/20 10:00 05/08/20 11:04 Folic Acid - PO 1 mg DAILY AIXA Administration [place] Carbonate 300 mg 05/03/20 22:00 05/08/20 11:03 Eskalith - PO 300 mg BID AIXA Administration Risperidone 1 mg 05/03/20 22:00 05/08/20 11:02 Risperdal - PO 1 mg BID AIXA Administration Thiamine HCl 100 mg 05/03/20 10:00 05/08/20 11:02 Vitamin B1 - PO 100 mg DAILY AIXA Administration Home Medications Medication Instructions Recorded NK [No Known Home Medication] 04/17/20 Microbiology 05/02/20 22:50 Blood - Peripheral Venous Blood Culture - Final NO GROWTH AFTER 5 DAYS INCUBATION 05/02/20 22:45 Blood - Peripheral Venous Blood Culture - Final NO GROWTH AFTER 5 DAYS INCUBATION 05/02/20 22:50 Urine - Urine Clean Catch Urine Culture - Final NO GROWTH OBTAINED ASSESSMENT AND PLAN: Patient is a 44yom with Pmhx of bioplar and depression and several suicidal attempts , withdrawal seizures, ETOH abuse, and non compliance with psych meds who presented with Suicidal ideation. . # Acute Suicidal ideation :psych is on the case , discussed with SW, trying to arrange a bed # severe depression with psychotic features # Bipolar Do: on respirdal and [place] continue , lithium level 0.3, cont 1: 1 # leukocytosis , resolved. cxs neg to date # Reported hematochezia . H/H stable , outpatient GI F/u # s/p Fall : No fx on pelvis CT and R knee xray # ETOH withdrawal : cont librium . last dose tomorrow at 5 pm, cont thiamine and Folic DVT PX: lovenox Cont 1:1. Can NOT leave AMA completed detox. can be transferred transferred to psych . waiting for bed in psych facility
--- NOTE | 2020-05-08 19:35 | PN ---
Mental Health Exam - Mental Status Exam Alert and Oriented to: Time, Place, Person Cognitive Function: Grossly Intact Patient Appearance: Unkempt Mood: Apathetic, Withdrawn Affect: Labile Patient Behavior: Guarded, Distractible, Cooperative Speech Pattern: Clear, Perseverating, Tangential Voice Loudness: Mildly Soft/Quiet Thought Process: Intact, Flight of Ideas Thought Disorder: Not Present Hallucinations: Denies Suicidal Ideation: Current Homicidal Ideation: Current Insight/Judgement: Poor Sleep: Poorly Appetite: Good Muscle strength/Tone: Normal Gait/Station: Normal Additional Comments: Client re -examined today on for safety, suicidal ideation is present, with plan to jump in front of train, bringing others with him. Client is less restless. Client is adherent with bipolar medications. Client is labile, but in agreement with treatment plan for transfer to inpatient psychiatyy for danger to self and others.
[2020-05-09 09:07] LABS: BASO % 0.7 % (0-2.0); EOS % 5.7 % (0-4.5); HEMATOCRIT 41.7 % (35.4-49); HEMOGLOBIN 14.3 GM/dL (11.7-16.9); LYMPH % 15.1 % (8-40); MCH 29.7 pg (25.7-33.7); MCHC 34.4 g/dl (32.0-35.9); MEAN CELL VOLUME 86.2 fl (80-96); MEAN PLT VOLUME 9.6 fl (7.5-11.1); MONO % 8.2 % (3.8-10.2); NEUT % 70.3 % (42.8-82.8); PLATELET COUNT 230 K/MM3 (134-434); RBC 4.83 M/mm3 (4.00-5.60); RDW 13.4 % (11.9-15.9); WHITE BLOOD COUNT 8.5 K/mm3 (4.0-10.0)
[2020-05-09 09:19] LABS: BLOOD UREA NITROGEN 19.8 mg/dL (7-18); CALCIUM 8.8 mg/dL (8.5-10.1); POTASSIUM 4.2 mmol/L (3.5-5.1)
[2020-05-09] MEDS ORDERED: PT OWN MED DRAWER 7, Y5N ONE ×2 (11:10→21:10)
[2020-05-09] MEDS: FOLIC ACID 1 MG TABLET (FP) PO SCH (11:15)
[2020-05-09] MEDS: risperiDONE 1 MG TABLET PO SCH ×2 (11:15→21:14)
[2020-05-09] MEDS: LITHIUM CARBONATE 300 MG CAPSULE (FP) PO SCH ×2 (11:15→21:14)
[2020-05-09] MEDS: DOCUSATE SODIUM 100 MG CAPSULE (FP) PO SCH ×2 (11:15→21:14)
[2020-05-09] MEDS: ENOXAPARIN NA (PORCINE) 40 MG/0.4 ML DISP.SYRIN SQ SCH (11:15)
[2020-05-09] MEDS: THIAMINE HCL 100 MG TABLET (FP) PO SCH (11:15)
--- NOTE | 2020-05-09 15:15 | PN ---
Physical Exam: SUBJECTIVE: Patient seen and examined OBJECTIVE: Vital Signs Period Temp Pulse Resp BP Sys/Yates Pulse Ox Last 24 Hr 97.6 F-97.9 F 56-63 18-20 99-127/58-70 95-96 GENERAL: The patient is awake, alert, and fully oriented, in no acute distress. HEAD: Normal with no signs of trauma. EYES: PERRL, extraocular movements intact, sclera anicteric, conjunctiva clear. No ptosis. ENT: Ears normal, nares patent, oropharynx clear without exudates, moist mucous membranes. NECK: Trachea midline, full range of motion, supple. LUNGS: Breath sounds equal, clear to auscultation bilaterally, no wheezes, no cr ackles, no accessory muscle use. HEART: Regular rate and rhythm, S1, S2 without murmur, rub or gallop. ABDOMEN: Soft, nontender, nondistended, normoactive bowel sounds, no guarding, no rebound, no hepatosplenomegaly, no masses. EXTREMITIES: 2+ pulses, warm, well-perfused, no edema. NEUROLOGICAL: Cranial nerves II through XII grossly intact. Normal speech, gait not observed. PSYCH: Normal mood, normal affect. SKIN: Warm, dry, normal turgor, no rashes or lesions noted Laboratory Results - last 24 hr CBC, BMP 05/09/20 07:12 05/09/20 07:12 Active Medications Generic Name Dose Route Start Last Admin Trade Name Freq PRN Reason Stop Dose Admin Acetaminophen 650 mg 05/03/20 15:39 05/06/20 06:36 Tylenol - PO 650 mg Q6H PRN Administration PAIN LEVEL 4 - 6 Docusate Sodium 100 mg 05/05/20 22:00 05/09/20 11:15 Colace - PO 100 mg BID AIXA Administration Enoxaparin Sodium 40 mg 05/03/20 16:30 05/09/20 11:15 Lovenox - SQ 40 mg DAILY AIXA Administration Folic Acid 1 mg 05/03/20 10:00 05/09/20 11:15 Folic Acid - PO 1 mg DAILY AIXA Administration [place] Carbonate 300 mg 05/03/20 22:00 05/09/20 11:15 Eskalith - PO 300 mg BID AIXA Administration Risperidone 1 mg 05/03/20 22:00 05/09/20 11:15 Risperdal - PO 1 mg BID AIXA Administration Thiamine HCl 100 mg 05/03/20 10:00 05/09/20 11:15 Vitamin B1 - PO 100 mg DAILY AIXA Administration ASSESSMENT/PLAN: ATTENDING PHYSICIAN STATEMENT I saw and evaluated the patient. I reviewed the resident's note and discussed the case with the resident. I agree with the resident's findings and plan as documented. SUBJECTIVE: OBJECTIVE: ASSESSMENT AND PLAN:
--- NOTE | 2020-05-09 15:35 | PN ---
Teaching Attending Note Name of Resident: Hasmukh Brenner ATTENDING PHYSICIAN STATEMENT I saw and evaluated the patient. I reviewed the resident's note and discussed the case with the resident. I agree with the resident's findings and plan as documented. SUBJECTIVE: Patient is comfortable, with NAD. OBJECTIVE: Vital Signs Temperature 97.7 F 05/09/20 14:22 Pulse Rate 63 05/09/20 14:22 Respiratory Rate 20 05/09/20 14:22 Blood Pressure 110/70 05/09/20 14:22 O2 Sat by Pulse Oximetry (%) 95 05/09/20 14:22 pe:PER RESIDENT'S NOTE CBCD WBC 8.5 K/mm3 (4.0-10.0) 05/09/20 07:12 RBC 4.83 M/mm3 (4.00-5.60) 05/09/20 07:12 Hgb 14.3 GM/dL (11.7-16.9) 05/09/20 07:12 Hct 41.7 % (35.4-49) 05/09/20 07:12 MCV 86.2 fl (80-96) 05/09/20 07:12 MCHC 34.4 g/dl (32.0-35.9) 05/09/20 07:12 RDW 13.4 % (11.9-15.9) 05/09/20 07:12 Plt Count 230 K/MM3 (134-434) 05/09/20 07:12 MPV 9.6 fl (7.5-11.1) 05/09/20 07:12 CMP Sodium 137 mmol/L (136-145) 05/09/20 07:12 Potassium 4.2 mmol/L (3.5-5.1) 05/09/20 07:12 Chloride 105 mmol/L (98-107) 05/09/20 07:12 Carbon Dioxide 27 mmol/L (21-32) 05/09/20 07:12 Anion Gap 5 MMOL/L (8-16) L 05/09/20 07:12 BUN 19.8 mg/dL (7-18) H 05/09/20 07:12 Creatinine 1.0 mg/dL (0.55-1.3) 05/09/20 07:12 Random Glucose 81 mg/dL (74-106) 05/09/20 07:12 Calcium 8.8 mg/dL (8.5-10.1) 05/09/20 07:12 Total Bilirubin 1.0 mg/dL (0.2-1) 05/03/20 06:59 AST 18 U/L (15-37) 05/03/20 06:59 ALT 39 U/L (13-61) 05/03/20 06:59 Alkaline Phosphatase 101 U/L (45-117) 05/03/20 06:59 Total Protein 7.1 g/dl (6.4-8.2) 05/03/20 06:59 Albumin 3.5 g/dl (3.4-5.0) 05/03/20 06:59 CARDIAC ENZYMES Creatine Kinase 235 U/L (26-308) 05/02/20 23:00 Troponin I < 0.03 ng/ml (0.00-0.05) 05/02/20 23:00 Current Medications Generic Name Dose Route Start Last Admin Trade Name Freq PRN Reason Stop Dose Admin Acetaminophen 650 mg 05/03/20 15:39 05/06/20 06:36 Tylenol - PO 650 mg Q6H PRN Administration PAIN LEVEL 4 - 6 Docusate Sodium 100 mg 05/05/20 22:00 05/09/20 11:15 Colace - PO 100 mg BID AIXA Administration Enoxaparin Sodium 40 mg 05/03/20 16:30 05/09/20 11:15 Lovenox - SQ 40 mg DAILY AIXA Administration Folic Acid 1 mg 05/03/20 10:00 05/09/20 11:15 Folic Acid - PO 1 mg DAILY AIXA Administration [place] Carbonate 300 mg 05/03/20 22:00 05/09/20 11:15 Eskalith - PO 300 mg BID AIXA Administration Risperidone 1 mg 05/03/20 22:00 05/09/20 11:15 Risperdal - PO 1 mg BID AIXA Administration Thiamine HCl 100 mg 05/03/20 10:00 05/09/20 11:15 Vitamin B1 - PO 100 mg DAILY AIXA Administration Home Medications Medication Instructions Recorded NK [No Known Home Medication] 04/17/20 Laboratory Tests 05/02/20 05/08/20 05/09/20 23:00 19:15 12:15 COVID-19 (JAMIE) Not detected Not detected SARS-CoV-2 (PCR) Negative Microbiology 05/02/20 22:50 Blood - Peripheral Venous Blood Culture - Final NO GROWTH AFTER 5 DAYS INCUBATION 05/02/20 22:45 Blood - Peripheral Venous Blood Culture - Final NO GROWTH AFTER 5 DAYS INCUBATION 05/02/20 22:50 Urine - Urine Clean Catch Urine Culture - Final NO GROWTH OBTAINED ASSESSMENT AND PLAN: Patient is a 44yom with Pmhx of bioplar and depression and several suicidal attempts , withdrawal seizures, ETOH abuse, and non compliance with psych meds who presented with Suicidal ideation. . No new events overnight # Acute Suicidal ideation :psych is on the case , discussed with SW, trying to arrange a bed # severe depression with psychotic features # Bipolar Do: on respirdal and [place] continue , lithium level 0.3, cont 1: 1 # leukocytosis , resolved. cxs neg to date # Reported hematochezia . H/H stable , outpatient GI F/u # s/p Fall : No fx on pelvis CT and R knee xray # ETOH withdrawal : completed cont thiamine and Folic DVT PX: lovenox Cont 1:1. Can NOT leave AMA completed detox. can be transferred transferred to psych . waiting for bed in psych facility
[2020-05-09 15:57] VITALS: BMI 31.4
--- NOTE | 2020-05-09 16:00 | DS ---
Physical Exam: SUBJECTIVE: Patient seen and examined this morning, in no acute distress. Denied F/V, REN, changes in vision, CP, SoB, N/V/D. Anxiety decreased, agitation decreased. OBJECTIVE: Vital Signs Period Temp Pulse Resp BP Sys/Yates Pulse Ox Last 24 Hr 97.6 F-97.9 F 56-63 18-20 99-127/58-70 95-96 PHYSICAL EXAM GENERAL: The patient is awake, alert, and fully oriented, in no acute distress. HEAD: Normal with no signs of trauma. EYES: PERRL, extraocular movements intact, sclera anicteric, conjunctiva clear. ENT: Ears normal, nares patent, oropharynx clear without exudates, moist mucous membranes. NECK: Trachea midline, full range of motion, supple. LUNGS: Breath sounds equal, clear to auscultation bilaterally, no wheezes, no crackles, no accessory muscle use. HEART: Regular rate and rhythm, S1, S2 without murmur, rub or gallop. ABDOMEN: Soft, nontender, nondistended, normoactive bowel sounds, no guarding, no rebound, no hepatosplenomegaly, no masses. EXTREMITIES: 2+ pulses, warm, well-perfused, no edema. NEUROLOGICAL: Cranial nerves II through XII grossly intact. Normal speech, gait not observed. PSYCH: Normal mood, normal affect. SKIN: Warm, dry, normal turgor, no rashes or lesions noted. LABS Laboratory Results - last 24 hr 05/06/20 05/09/20 05/09/20 07:05 07:12 07:12 WBC 8.5 RBC 4.83 Hgb 14.3 Hct 41.7 MCV 86.2 MCH 29.7 MCHC 34.4 RDW 13.4 Plt Count 230 MPV 9.6 Absolute Neuts (auto) 5.9 Neutrophils % 70.3 Lymphocytes % 15.1 Monocytes % 8.2 Eosinophils % 5.7 H Basophils % 0.7 Nucleated RBC % 0 Sodium 137 Potassium 4.2 Chloride 105 Carbon Dioxide 27 Anion Gap 5 L BUN 19.8 H Creatinine 1.0 Est GFR (CKD-EPI)AfAm 104.88 Est GFR (CKD-EPI)NonAf 90.49 Random Glucose 81 Calcium 8.8 Chlordiazepoxide 2.0 Norchlordiazepoxide 2.1 Nordiazepam 0.1 SARS-CoV-2 (PCR) 05/09/20 12:15 WBC RBC Hgb Hct MCV MCH MCHC RDW Plt Count MPV Absolute Neuts (auto) Neutrophils % Lymphocytes % Monocytes % Eosinophils % Basophils % Nucleated RBC % Sodium Potassium Chloride Carbon Dioxide Anion Gap BUN Creatinine Est GFR (CKD-EPI)AfAm Est GFR (CKD-EPI)NonAf Random Glucose Calcium Chlordiazepoxide Norchlordiazepoxide Nordiazepam SARS-CoV-2 (PCR) Negative HOSPITAL COURSE: Date of Admission:05/03/20 Date of Discharge: 05/09/20 44 yo M w/ PMHx of Bipolar Disorder, Schizoaffective Disorder, Alcohol Abuse, recent admission to [facility] for Detox- 04/17-04/20. Who presented to [place] ED for left hip pain s/p fall. Patient admitted to drinking beer and Henessy daily, last drink day of admission. Patient reported to EMT and staff while en route to the [facility] having Suicidal Ideation. Patient reports not taking his "psych meds" x1week and feeling depressed. Patient reported having a suicidal plan- laying down on the railroad tracks, and having a train run him over. He freely talked about his prior suicide attempts. Patient denies homicidal ideation, visual or auditory hallucinations. Patient denied fever, chills, cough, dizziness, SOB, CP, palpitations, AP, N/V/D, constipation, dysuria. Patient denied recent sick contacts or travel. ED course was noted for: (1) WBC 24.6 (2) Temp 100.5 (3) Chest Xray- no acute pathology (4) Left Hip Xray- no acute pelvic or left hip pathology Ptn admitted to medical floor on 1:1 supervision 2/2 SI. He continued to endorse SI, and began endorsing HI as well as auditory hallucinations. Ptn was anxious and aggitated, however never threatening. Ptn additionally endorsed hematochezia, althtough at the time, had no episodes. Psych consulted, and Umbarger/Risperidone started. Librium protocol for Etoh withdrawal. Over the following days, ptn mood improved, hallucinations stopped. Initial leukocytosis and fever abated, with blood and urine cx returning negative. Ptn was accepted to [facility] for psychiatric transfer after a repeat covid swab. At the time of transfer, patient was medically stable. Minutes to complete discharge: 36 Discharge Summary Problems reviewed: Yes Reason For Visit: ALCOHOL WITHDRAWAL, LEUKOCYTOSIS, FEVER Current Active Problems Bipolar disorder (Chronic) Schizoaffective disorder (Chronic) Suicidal ideations (Chronic) Condition: Stable - Instructions Diet, Activity, Other Instructions: YOUR VISIT You came to the hospital because you were experiencing alcohol withdrawal, suicidal and homicidal thoughts, as well as hallucinations. You additionally had a fall on your left hip which showed no injury with imaging. You were admitted to the hospital for care of these symptoms. You are now stable and may be transferred to the psychiatric facility at [facility] for further management. Of note, during your stay here we also found: 1.)CAT Scan Head: Evidence of a "retention cyst or polyp" in your left maxilla, this is part of your sinuses located in your face, and we have referred you to an Ear, Nose and Throat doctor for management. MEDICATIONS -You were STARTED on Risperidone 1mg twice a day (Morning and Night), for your mental health. Please continue to take this medication -You were STARTED on Umbarger 300mg twice a day (Morning and Night) for your mental health. Please continue to take this medication, and follow up with your primary care provider for followup -You were STARTED on Thiamine 100mg once a day for your nutrition due to your alcohol use. Please continue to take this medication. -You were STARTED on Folic Acid 1mg once a day for your nutrition due to your alcohol use. Please continue to take this medication. ADDITIONAL CARE -Please make an appointment to see a primary care provider after your are discharged from [facility]. Since you do not have one, you can call to schedule an appointment at the [facility] residents' clinic, located at [address] [place] [address]. If you would like to continue seeing Dr. Hasmukh Brenner, please ask for a Tuesday morning appointment. -Please make an appointment to see Dr. Dariel Vargas (Addiction Medicine) for evaluation of your substance use -Please make an appointment to see Dr. Sara Garcia (Gastroenterology) for evaluation of your previous bowel movements with blood. -Please make an appointment to see Dr. Herson Fairbanks (ENT) for evaluation of your sinuses. ADDITIONAL INFORMATION -Please call the National Suicide Prevention Lifeline at 548-418-1831 if you have any thoughts of hurting yourself or others. -Please call 911 or come directly to the emergency department if you experience recurrence of the symptoms that brought you to the hospital, unusual headache, vision change, shortness of breath, chest pain, numbness, tingling, loss of alertness/awareness, loss of function, unusual bleeding or any alarming symptoms. Referrals: Noel Mccann MD [Staff Physician] - Sara Garcia DO [Staff Physician] - (Prior episodes of hematochezia, since resolved. ) Dariel Vargas DO [Staff Physician] - (History of alcohol use and withdrawal) Disposition: TRANSFER ACUTE CARE/OTHER HOSP - Home Medications Comprehensive Discharge Medication List: Ambulatory Orders Folic Acid - 1 mg PO DAILY tablet 05/09/20 Umbarger Carbonate [Eskalith -] 300 mg PO BID #0 capsule 05/09/20 Risperidone [Risperdal -] 1 mg PO BID tablet 05/09/20 Thiamine HCl [Vitamin B1 -] 100 mg PO DAILY tablet 05/09/20 This patient is new to me today: No Emergency Visit: No Critical Care patient: No - Discharge Referral Referred to [facility] No ATTENDING PHYSICIAN STATEMENT I saw and evaluated the patient. I reviewed the resident's note and discussed the case with the resident. I agree with the resident's findings and plan as documented. SUBJECTIVE: OBJECTIVE: ASSESSMENT AND PLAN:
[2020-05-09 20:01] VITALS: BP 111/63; PULSE 57; TEMP 98.5
== END 2020-05-09 23:32 | disposition short-term general hospital (02) | DRG 753 ==
LOC: FER 21:07 → J8W 05-03 01:53
PROVIDERS: ADMIT Internal Medicine; ATTEND Internal Medicine
PROC: HZ2ZZZZ Detoxification Services for Substance Abuse Treatment (ICD-10-PCS; principal; 2020-05-03)
DX: F31.5 Bipolar disorder, current episode depressed, severe, with psychotic features (principal); R45.851 Suicidal ideations; M25.552 Pain in left hip; F10.239 Alcohol dependence with withdrawal, unspecified; D72.829 Elevated white blood cell count, unspecified; R45.850 Homicidal ideations; W18.30XA Fall on same level, unspecified, initial encounter; Y92.89 Other specified places as the place of occurrence of the external cause; F23 Brief psychotic disorder; F17.200 Nicotine dependence, unspecified, uncomplicated; K92.1 Melena
CPT/HCPCS: 36415; 70450-TC; 71045-TC-FY; 72125-TC; 72192-TC; 73523-TC-FY; 73562-TC-RT-FY; 80048; 80053; 80178; 80307; 81003; 81015; 82550; 82553; 83735; 84100; 84484; 85025; 85027; 87040; 87086; 93005; 97116-GP; 97161-GP; 99285-25; C9803; G0480; J2794; U0003

== ENCOUNTER 2021-10-28 21:13 | Emergency (ER) | payer OTHER ==
[2021-10-28 21:46] VITALS: BMI 29.5
[2021-10-28 22:32] LABS: BASO % 0.8 % (0-2.0); EOS % 2.2 % (0-4.5); HEMATOCRIT 37.1 % (35.4-49); HEMOGLOBIN 12.6 GM/dL (11.7-16.9); LYMPH % 9.6 % (8-40); MCH 28.4 pg (25.7-33.7); MEAN CELL VOLUME 83.7 fl (80-96); MEAN PLT VOLUME 9.6 fl (7.5-11.1); MONO % 11.6 % (3.8-10.2); NEUT % 75.8 % (42.8-82.8); PLATELET COUNT 267 10^3/uL (134-434); RBC 4.43 M/mm3 (4.00-5.60); RDW 13.9 % (11.9-15.9); WHITE BLOOD COUNT 12.3 K/mm3 (4.0-10.0)
[2021-10-28 22:48] LABS: CHLORIDE 105 mmol/L (98-107); SODIUM 137 mmol/L (136-145)
[2021-10-28 22:50] LABS: CALCIUM 8.7 mg/dL (8.5-10.1); GLUCOSE,RANDOM 123 mg/dL (74-106)
[2021-10-28 22:51] LABS: ALBUMIN 3.4 g/dl (3.4-5.0); ANION GAP 6 MMOL/L (8-16); CO2 27 mmol/L (21-32); MAGNESIUM 2.2 mg/dL (1.8-2.4)
[2021-10-28 22:54] LABS: CREATININE 0.8 mg/dL (0.55-1.3); SGOT/AST 22 U/L (15-37); SGPT/ALT 38 U/L (13-61)
[2021-10-28 22:55] LABS: BILIRUBIN,TOTAL 0.6 mg/dL (0.2-1); TOT PROT 6.4 g/dl (6.4-8.2)
[2021-10-28 22:57] LABS: ALK PHOS 69 U/L (45-117)
[2021-10-29 19:16] VITALS: BP 133/78; PULSE 74; TEMP 98.8
== END 2021-10-29 18:55 | disposition short-term general hospital (02) ==
LOC: JER 21:13
DX: R07.9 Chest pain, unspecified (principal); R45.851 Suicidal ideations; R45.850 Homicidal ideations
CPT/HCPCS: 36415; 71045-TC-FY; 80053; 80178; 80307; 83735; 84484; 85025; 93005; 93010; 99285-25; C9803-CS; U0003; U0005